=== PATIENT | male | born 1960 | race American Indian/Alaskan Native ===

== ENCOUNTER 2016-10-21 13:31 | Emergency (ER) | payer MEDICARE ==
[2016-10-21 14:44] VITALS: BP 156/71
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
--- NOTE | 2016-10-22 09:57 | XRay Report ---
LEFT TIBIA AND FIBULA, 2 VIEWS: HISTORY: Postoperative evaluation, pain. FINDINGS: Compared to the operative film dated 10/06/16. The internally fixated distal fibular fracture is unchanged in position and alignment. The internally fixated medial malleolus fracture has changed in position and alignment. There is now medial displacement of the medial malleolus. Please correlate with the images. Diffuse soft tissue swelling is noted. A splint is in position. IMPRESSION: There has been displacement at the medial malleolus fracture since the operative films dated 10/06/16. Please refer to the images. The fibular fracture is unchanged and remains in good alignment.
== END 2016-10-21 19:49 | disposition home or self-care (01) ==
LOC: ED 13:31
DX: S82.892A Other fracture of left lower leg, initial encounter for closed fracture (principal); F20.9 Schizophrenia, unspecified; I10 Essential (primary) hypertension; E11.9 Type 2 diabetes mellitus without complications; F03.90 Unspecified dementia, unspecified severity, without behavioral disturbance, psychotic disturbance, mood disturbance, and anxiety; F17.200 Nicotine dependence, unspecified, uncomplicated; X58.XXXA Exposure to other specified factors, initial encounter; Y93.9 Activity, unspecified; Y92.9 Unspecified place or not applicable; Y99.9 Unspecified external cause status
CPT/HCPCS: 99283

== ENCOUNTER 2016-10-23 13:20 | Outpatient (CLI) | payer MEDICARE | END 2016-10-23 13:21 | disposition home or self-care (01) | LOC: LABHHL 13:20 | PROVIDERS: ATTEND Orthopaedic Surgery | DX: S82.842S Displaced bimalleolar fracture of left lower leg, sequela (principal); X58.XXXS Exposure to other specified factors, sequela | CPT/HCPCS: 87075; 87116 ==

== ENCOUNTER 2017-02-10 07:37 | Day surgery (SDC) | payer MEDICARE ==
[~2017-02-10 07:37] MED LIST: ANCEF/STERILE WATER 2 GM/20 ML 2 GM/20 ML SYRINGE IV NR
[2017-02-10] MEDS ORDERED: DIPRIVAN 10 MG/ML IV ONE (08:50)
[2017-02-10] MEDS ORDERED: DILAUDID ONE (08:50)
--- NOTE | 2017-02-10 09:36 | Anesthesia Consultation ---
Anesthesia Consult and Med Hx Date of service: 02/10/17 - Airway Anesthetic Teeth Evaluation: Good ROM Head & Neck: Adequate Mental/Hyoid Distance: Adequate Mallampati Class: Class II Intubation Access Assessment: Probably Good - Pulmonary Exam CTA: Yes - Cardiac Exam Cardiac Exam: RRR - Pre-Operative Health Status ASA Pre-Surgery Classification: ASA3 Proposed Anesthetic Plan: General Nerve Block: Pop - Pulmonary Hx Smoking: Yes (1p/d x 9 years) Hx Asthma: No COPD: No Hx Pneumonia: No Hx Sleep Apnea: No - Cardiovascular System Hx Hypertension: Yes - Central Nervous System Hx Psychiatric Problems: Yes (schizophrenia. MENTALLY CHALLENGED) - Gastrointestinal Hx Gastroesophageal Reflux Disease: No - Endocrine Hx Insulin Dependent Diabetes: Yes Hx Non-Insulin Dependent Diabetes: Yes - Hematic Hx Anemia: Yes - Other Systems Hx Cancer: No
--- NOTE | 2017-02-10 09:36 | Anesthesia Day of Surgery ---
Anesthesia Day of Surgery - Day of Surgery Patient Examined: Yes Patient H&P Reviewed: Yes Patient is NPO: Yes
[2017-02-10] MEDS ORDERED: VERSED IV NR (10:00)
[2017-02-10] MEDS ORDERED: NACL 0.9% 1000 ML 1,000 ML IV SCH (10:00)
[2017-02-10] MEDS ORDERED: PEPCID PO NR (10:00)
[2017-02-10 10:19] LABS: Hematocrit 24.8 % (35.5-45.6); Hemoglobin 7.9 gm/dl (11.8-15.2)
[2017-02-10] MEDS ORDERED: DECADRON ONE (10:48)
[2017-02-10] MEDS ORDERED: MARCAINE-EPI 0.25%-1:200,000 INFILTRATI ONE (10:48)
--- NOTE | 2017-02-10 11:36 | Short Stay Summary ---
Short Stay Documentation Date of service: 02/10/17 - History H&P: obtained from office - Allergies and Medications Current Medications: Allergies aripiprazole [From Abilify] Allergy (Verified 10/03/16 00:01) Unknown divalproex sodium [From Depakote] Allergy (Verified 10/03/16 00:01) Unknown enalapril Allergy (Verified 10/03/16 00:01) Unknown fluoxetine HCl [From Prozac] Allergy (Verified 10/03/16 00:01) Unknown fluphenazine Allergy (Verified 10/03/16 00:01) Unknown lithium Allergy (Verified 10/03/16 00:01) Unknown loxapine Allergy (Verified 10/03/16 00:01) Unknown sertraline HCl [From Zoloft] Allergy (Verified 10/03/16 00:01) Unknown ziprasidone HCl [From Geodon] Allergy (Verified 10/03/16 00:01) Unknown ziprasidone mesylate [From Geodon] Allergy (Verified 10/03/16 00:01) Unknown Home Medications Medication Instructions Recorded Confirmed Last Taken Type Benztropine 2 mg PO BID 04/02/15 02/09/17 03/15/16 History LORazepam 0.5 mg PO QHS 04/02/15 02/09/17 03/15/16 History Aspirin [Aspirin TAB] 325 mg PO BID #60 tablet 10/15/16 02/09/17 Unknown Rx DULoxetine 60 mg PO DAILY #30 10/15/16 02/09/17 Unknown Rx Ferrous Sulfate [Feosol 325 MG tab] 325 mg PO BID #60 tablet 10/15/16 02/09/17 Unknown Rx Hydrochlorothiazide [HCTZ] 12.5 mg PO QDAY #30 capsule 10/15/16 02/09/17 Unknown Rx Pioglitazone [Actos] 30 mg PO QDDIAB #30 tablet 10/15/16 02/09/17 Unknown Rx amLODIPine [Norvasc] 10 mg PO DAILY #30 tablet 10/15/16 02/09/17 Unknown Rx glipiZIDE [Glucotrol] 10 mg PO QDDIAB #30 tablet 10/15/16 02/09/17 Unknown Rx Enoxaparin [Lovenox] 40 mg SUB-Q QDAY@2200 syringe 11/16/16 02/09/17 Unknown Rx HYDROcodone/APAP 5-325 [[place] 1 - 2 each PO Q6HR PRN #10 tablet 11/16/16 Unknown Rx 5/325] Multivitamin Tab [Multiple Vitamin 1 each PO QDAY tablet 11/16/16 02/09/17 Unknown Rx TAB (Theragran)] Ascorbic Acid [Vitamin C] 500 mg PO BID 02/09/17 02/09/17 Unknown History Clonidine HCl [Kapvay] 0.1 mg PO BID PRN 02/09/17 02/09/17 Unknown History Famotidine [Pepcid] 20 mg PO DAILY 02/09/17 02/09/17 Unknown History Insulin Aspart [NovoLOG Flexpen] 1 - 100 units SQ AC PRN 02/09/17 02/09/17 Unknown History Lactobacillus Combination No.8 1 each PO BID 02/09/17 02/09/17 Unknown History [Adult Probiotic] Sulfamethoxazole/Trimethoprim 1 each PO BID 02/09/17 02/09/17 Unknown History [Bactrim DS TAB] risperiDONE [RisperiDONE] 0.5 mg PO QDAY 02/09/17 02/09/17 Unknown History Active Medications Famotidine (Pepcid) 20 mg PO PREOP NR Cefazolin Sodium (Ancef/Sterile Water 2 Gm/20 Ml) 2 gm in 20 mls @ 80 mls/hr IV PREOP NR PRN Reason: Protocol Stop: 02/10/17 16:00 Sodium Chloride (Nacl 0.9% 1000 Ml) 1,000 mls @ 100 mls/hr IV DIRECT JOSE Midazolam HCl (Versed) 2 mg IV PREOP NR Stop: 02/10/17 23:59 - Brief post op/procedure progress note Date of procedure: 02/10/17 Pre-op diagnosis: S/P ankle arthrodesis Post-op diagnosis: same Procedure: Removal of external fixator Anesthesia: GETA Short Stay Discharge Plan Follow up with: PRIMARY CARE, [Primary Care Provider] - 7 Days
[2017-02-10] MEDS ORDERED: NACL 0.9% IR ONE (11:38)
[2017-02-10] MEDS ORDERED: ZOFRAN ONE (11:58)
[2017-02-10] MEDS ORDERED: XYLOCAINE MPF 2% ONE (11:58)
--- NOTE | 2017-02-10 12:27 | Post Anesthesia Evaluation ---
- Post Anesthesia Evaluation Patient Participated: Yes Airway Patent: Yes Stable Respiratory Function: Yes Nausea/Vomiting: No Temp > 96.8F: Yes Pain Manageable: Yes Adequeate Hydration: Yes Anesthesia Complications: No Block Receding Appropriately: Not Applicable Patient on Ventilator: No
[2017-02-10 19:51] VITALS: BP 147/81
--- NOTE | 2017-02-10 23:46 | Operative Report ---
PREOPERATIVE DIAGNOSES: Status post open infected ankle, status post ankle arthrodesis open with external fixator. PROCEDURE: Removal of external fixation. SURGEON: Graciela Flores MD HAMPER MAKER MACHINE: Alex Noble RN ANESTHESIA: General. COMPLICATION: None. PROCEDURE IN DETAIL: Once the patient was in the surgical room, a complete construct of system was prepped and draped with alcohol solution. Once it was done, all the connecting clamps were loosened up and removed leaving the fixation pins. Once this was done, the pins on the tibia #4 were removed one by one using the pin alvarado. Once it was done, the attention was carried out to the calcaneus, transfixing pins from the calcaneus were cut with a big bone cutter, the remaining of the pins were cleaned out and the pins were pulled away from the ankle. Once this was done, all the puncture holes were cleaned and a compression bandage applied. Once it was done, the patient was awakened and the patient was taken to the recovery room doing well at the end of the procedure. JOB# [id number] BAUTISTA/RICHARD BLACK
== END 2017-02-10 16:03 | disposition other institution (70) ==
LOC: OR 07:37
DX: Z46.89 Encounter for fitting and adjustment of other specified devices (principal); I10 Essential (primary) hypertension; F20.9 Schizophrenia, unspecified; E11.9 Type 2 diabetes mellitus without complications; D64.9 Anemia, unspecified; F17.210 Nicotine dependence, cigarettes, uncomplicated; Z79.899 Other long term (current) drug therapy
CPT/HCPCS: 20694; 36415; 64450; 82962; 84132; 85014; 85018; J0690; J1100; J1170; J2250; J2405; J2704; J7030

== ENCOUNTER 2017-08-02 17:01 | Emergency (ER) | payer MEDICARE, OTHER ==
[2017-08-02 21:37] VITALS: BP 142/87
[2017-08-02 22:34] LABS: Basophils % (Auto) 0.9 % (0.0-1.8); Hemoglobin 10.5 gm/dl (11.8-15.2); White Blood Count 5.1 K/mm3 (4.5-11.0)
[2017-08-02 22:38] LABS: Hematocrit 33.4 % (35.5-45.6); Mean Corpuscular HGB Conc 32 % (32-34); Mean Corpuscular Hemoglobin 28 pg (28-32); Mean Corpuscular Volume 89 fl (84-94); Platelet Count 340 K/mm3 (140-440); Red Blood Count 3.75 M/mm3 (3.65-5.03)
[2017-08-02 23:08] LABS: Alanine Aminotransferase 11 units/L (7-56); Albumin 4.2 g/dL (3.9-5); Alkaline Phosphatase 152 units/L (35-129); Anion Gap 19 mmol/L; BUN/Creatinine Ratio 14; Blood Urea Nitrogen 20 mg/dL (9-20); Calcium 9.4 mg/dL (8.4-10.2); Carbon Dioxide 25 mmol/L (22-30); Chloride 98.8 mmol/L (98-107); Glucose 87 mg/dL (75-100); Potassium 4.5 mmol/L (3.6-5.0); Sodium 138 mmol/L (137-145); Total Protein 8.6 g/dL (6.3-8.2)
--- NOTE | 2017-08-02 23:21 | Cat Scan Report ---
FINAL REPORT PROCEDURE: CT LOWER EXTREMITY LT WO CON TECHNIQUE: Computerized axial tomography of the LEFT ankle was performed without contrast. HISTORY: sx hardware exposed/wound/deformity lt ankle COMPARISON: No prior studies are available for comparison. FINDINGS: There is hardware transfixing old healed fracture of the distal fibula. The hardware is intact. The lowest screw in the plate appears to be partially exposed. Overlying soft tissues, however, are within normal limits. No discrete abscess is seen. 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 There is fragmentation of the medial malleolus with lateral displacement of the talus relative to the tibia. There are destructive changes of the distal tibia and the articular surface of the talus. There is significant bony overgrowth and periosteal reaction of the tibia and fibula. These could be degenerative changes but possibility of osteomyelitis cannot be excluded. The calcaneus is intact. The tarsal bones and metatarsal bones and phalanges are intact. There is the medial subcutaneous edema at the ankle and generalized soft tissue edema of the hindfoot. There is no subcutaneous air or soft tissue mass. IMPRESSION: There is hardware transfixing old healed fracture of the distal fibula. The hardware is intact. The lowest screw in the plate appears to be partially exposed. 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 There is fragmentation of the medial malleolus with lateral displacement of the talus relative to the tibia. There are destructive changes of the distal tibia and the articular surface of the talus. There is significant bony overgrowth and periosteal reaction of the tibia and fibula. These could be degenerative changes but possibility of osteomyelitis cannot be excluded.
[2017-08-03 00:02] LABS: Bilirubin,Urine NEG (Negative); Blood,Urine SM (Negative); Ketones,Urine NEG (Negative); Leukocyte Esterase,Urine NEG (Negative); Mucus,Urine FEW /HPF; Nitrite,Urine NEG (Negative); Protein,Urine <15 mg/dL mg/dL (Negative); Urobilinogen,Urine < 2.0 mg/dL (<2.0); WBC,Urine < 1.0 /HPF (0.0-6.0)
--- NOTE | 2017-08-03 00:41 | Emergency Department Report ---
ED Extremity Problem HPI - General Chief complaint: Extremity Injury, Lower Stated complaint: LEFT ANKLE WOUND CK Time Seen by Provider: 08/02/17 21:56 Source: patient, EMS Mode of arrival: Stretcher Limitations: No Limitations - History of Present Illness Initial comments: A 58-year-old male brought to ER with complaints of transfixing pin, protruding through his skin on his left lateral malleolus. This came to his attention today. 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 He is status post open reduction internal fixation of bimalleolar fracture left ankle.. Patient denies fevers chills or rigors, no nausea vomiting no diarrhea, he doesn't recall any trauma prior to transfixing pin protruding through his left lateral malleolus. MD Complaint: other (transfixating pin, protruding through left ankle lateral malleolus) -: Gradual Location: left (left ankle, lateral malleolus) History of Same: No Severity scale (0 -10): 0 Improves with: nothing Worsens with: nothing Associated Symptoms: denies other symptoms. denies: chest pain, shortness of breath, fever, myalgias, arthralgias, rash - Related Data Home Medications Medication Instructions Recorded Confirmed Last Taken Benztropine 2 mg PO BID 04/02/15 08/02/17 02/09/17 LORazepam 1 mg PO BID 04/02/15 08/02/17 02/09/17 risperiDONE [RisperiDONE] 1 mg PO HS 02/09/17 08/02/17 02/09/17 amLODIPine [Norvasc] 10 mg PO DAILY 02/10/17 08/02/17 02/09/17 Pioglitazone [Actos] 15 mg PO QDDIAB 08/02/17 08/02/17 Unknown Previous Rx's Medication Instructions Recorded Last Taken Type DULoxetine 60 mg PO DAILY #30 10/15/16 02/09/17 Rx Ferrous Sulfate [Feosol 325 MG tab] 325 mg PO BID #60 tablet 10/15/16 02/09/17 Rx Hydrochlorothiazide [HCTZ] 12.5 mg PO QDAY #30 capsule 10/15/16 02/09/17 Rx glipiZIDE [Glucotrol] 10 mg PO QDDIAB #30 tablet 01/19/17 05/16/17 Rx Multivitamin Tab [Multiple Vitamin 1 each PO QDAY tablet 11/16/16 02/09/17 Rx TAB (Theragran)] Allergies Allergy/AdvReac Type Severity Reaction Status Date / Time aripiprazole [From Abilify] Allergy Unknown Verified 10/03/16 00:01 divalproex sodium Allergy Unknown Verified 10/03/16 00:01 [From Depakote] enalapril Allergy Unknown Verified 10/03/16 00:01 fluoxetine HCl [From Prozac] Allergy Unknown Verified 10/03/16 00:01 fluphenazine Allergy Unknown Verified 10/03/16 00:01 lithium Allergy Unknown Verified 10/03/16 00:01 loxapine Allergy Unknown Verified 10/03/16 00:01 sertraline HCl [From Zoloft] Allergy Unknown Verified 10/03/16 00:01 ziprasidone HCl [From Geodon] Allergy Unknown Verified 10/03/16 00:01 ziprasidone mesylate Allergy Unknown Verified 10/03/16 00:01 [From Geodon] ED Review of Systems ROS: Stated complaint: LEFT ANKLE WOUND CK Other details as noted in HPI Comment: All other systems reviewed and negative Constitutional: denies: chills, diaphoresis, fever, malaise Eyes: denies: eye pain, eye discharge, vision change ENT: denies: throat pain, dental pain, hearing loss, epistaxis Respiratory: denies: cough, orthopnea, shortness of breath, SOB with exertion Cardiovascular: denies: chest pain, palpitations, dyspnea on exertion, orthopnea , edema, syncope Endocrine: see HPI Gastrointestinal: denies: nausea, vomiting, diarrhea Musculoskeletal: as per HPI, joint swelling Skin: as per HPI ED Past Medical Hx - Past Medical History Previous Medical History?: Yes Hx Hypertension: Yes Hx Congestive Heart Failure: No Hx Diabetes: Yes Hx Psychiatric Treatment: Yes Hx Asthma: No Hx COPD: No Hx Dementia: Yes Hx HIV: No - Surgical History Past Surgical History?: Yes Additional Surgical History: ORIF left ankle bimalleolar fracture - Social History Smoking Status: Unknown if ever smoked Substance Use Type: None - Medications Home Medications: Home Medications Medication Instructions Recorded Confirmed Last Taken Type Benztropine 2 mg PO BID 04/02/15 08/02/17 02/09/17 History LORazepam 1 mg PO BID 04/02/15 08/02/17 02/09/17 History DULoxetine 60 mg PO DAILY #30 10/15/16 08/02/17 02/09/17 Rx Ferrous Sulfate [Feosol 325 MG tab] 325 mg PO BID #60 tablet 10/15/16 08/02/17 02/09/17 Rx Hydrochlorothiazide [HCTZ] 12.5 mg PO QDAY #30 capsule 10/15/16 08/02/17 Rx glipiZIDE [Glucotrol] 10 mg PO QDDIAB #30 tablet 10/15/16 08/02/17 02/09/17 Rx Multivitamin Tab [Multiple Vitamin 1 each PO QDAY tablet 11/16/16 08/02/17 Rx TAB (Theragran)] risperiDONE [RisperiDONE] 1 mg PO HS 02/09/17 08/02/17 02/09/17 History amLODIPine [Norvasc] 10 mg PO DAILY 02/10/17 08/02/17 02/09/17 History Pioglitazone [Actos] 15 mg PO QDDIAB 08/02/17 08/02/17 Unknown History ED Physical Exam - General Limitations: No Limitations General appearance: alert, in no apparent distress - Head Head exam: Present: atraumatic, normocephalic - Eye Eye exam: Present: normal appearance, PERRL, EOMI - ENT ENT exam: Present: normal exam, normal orophraynx, mucous membranes moist - Neck Neck exam: Present: normal inspection, tenderness, full ROM. Absent: meningismus, lymphadenopathy, thyromegaly - Respiratory Respiratory exam: Present: normal lung sounds bilaterally. Absent: respiratory distress, wheezes, rales, rhonchi, chest wall tenderness, accessory muscle use, decreased breath sounds, prolonged expiratory - Cardiovascular Cardiovascular Exam: Present: regular rate, normal rhythm, normal heart sounds. Absent: bradycardia, tachycardia, systolic murmur, diastolic murmur - GI/Abdominal GI/Abdominal exam: Present: soft, normal bowel sounds. Absent: distended, tenderness, guarding, rebound, rigid, hyperactive bowel sounds, hypoactive bowel sounds, organomegaly, mass - Rectal Rectal exam: Present: deferred ED Course Vital Signs 08/02/17 08/02/17 08/02/17 17:39 21:12 21:15 Temperature 97.8 F Pulse Rate 80 73 Respiratory 18 15 15 Rate Blood Pressure 147/80 Blood Pressure 139/85 [Right] O2 Sat by Pulse 99 100 100 Oximetry 08/02/17 21:37 Temperature Pulse Rate 74 Respiratory 16 Rate Blood Pressure Blood Pressure 142/87 [Right] O2 Sat by Pulse 96 Oximetry - Consultations Consultation #1: 08/03/17 00:[address] Brianna cruz couple, Trileptal to be bandage over his left ankleand have him follow up with him in clinic. ED Medical Decision Making - Lab Data Result diagrams: 08/02/17 21:53 08/02/17 21:53 Critical Care Time: No Critical care attestation.: If time is entered above; I have spent that time in minutes in the direct care of this critically ill patient, excluding procedure time. ED Disposition Clinical Impression: Encounter for wound care of surgical pin site Disposition: DC-01 TO HOME OR SELFCARE Is pt being admited?: No Does the pt Need Aspirin: No Condition: Stable Instructions: Acute Wound Care (ED) Additional Instructions: Follow up with Dr. Wallace in clinic within next 1-2 days. Keep wound clean and dry Referrals: ABBIE GLEZ MD [Primary Care Provider] - 3-5 Days ROBERT WALLACE MD [Staff Physician] - 2-3 Days (Follow-up in outpatient clinic. Call office for an appointment.) Time of Disposition: 00:46
== END 2017-08-03 01:16 | disposition home or self-care (01) ==
LOC: ED 17:01
DX: M25.572 Pain in left ankle and joints of left foot (principal); G89.18 Other acute postprocedural pain; I10 Essential (primary) hypertension; E11.9 Type 2 diabetes mellitus without complications; F03.90 Unspecified dementia, unspecified severity, without behavioral disturbance, psychotic disturbance, mood disturbance, and anxiety
CPT/HCPCS: 36415; 80053; 81001; 82140; 85025; 87040; 87076; 87116; 87186

== ENCOUNTER 2017-08-17 12:47 | Day surgery (SDC) | payer MEDICARE ==
--- NOTE | 2017-08-17 14:18 | Short Stay Summary ---
Short Stay Documentation Date of service: 08/17/17 - History H&P: obtained from office - Allergies and Medications Current Medications: Allergies aripiprazole [From Abilify] Allergy (Verified 10/03/16 00:01) Unknown divalproex sodium [From Depakote] Allergy (Verified 10/03/16 00:01) Unknown enalapril Allergy (Verified 10/03/16 00:01) Unknown fluoxetine HCl [From Prozac] Allergy (Verified 10/03/16 00:01) Unknown fluphenazine Allergy (Verified 10/03/16 00:01) Unknown lithium Allergy (Verified 10/03/16 00:01) Unknown loxapine Allergy (Verified 10/03/16 00:01) Unknown sertraline HCl [From Zoloft] Allergy (Verified 10/03/16 00:01) Unknown ziprasidone HCl [From Geodon] Allergy (Verified 10/03/16 00:01) Unknown ziprasidone mesylate [From Geodon] Allergy (Verified 10/03/16 00:01) Unknown Home Medications Medication Instructions Recorded Confirmed Last Taken Type Benztropine 2 mg PO DAILY 04/02/15 08/13/17 02/09/17 History LORazepam 1 mg PO BID 04/02/15 08/13/17 02/09/17 History DULoxetine 60 mg PO DAILY #30 10/15/16 08/13/17 02/09/17 Rx Ferrous Sulfate [Feosol 325 MG tab] 325 mg PO BID #60 tablet 10/15/16 08/13/17 02/09/17 Rx Hydrochlorothiazide [HCTZ] 12.5 mg PO QDAY #30 capsule 10/15/16 08/13/17 Rx risperiDONE [RisperiDONE] 1 mg PO HS 02/09/17 08/13/17 02/09/17 History amLODIPine [Norvasc] 10 mg PO DAILY 02/10/17 08/13/17 02/09/17 History Pioglitazone [Actos] 15 mg PO DAILY 08/02/17 08/13/17 Unknown History Acetaminophen [Tylenol Extra 650 mg PO PRN PRN 08/13/17 08/13/17 Unknown History Strength] Ammonium Lactate [Lac-Hydrin 1 applicatio TP BID 08/13/17 08/13/17 Unknown History Lotion] Aspirin [Aspirin EC] 325 mg PO DAILY 08/13/17 08/13/17 Unknown History Haloperidol [Haldol] 10 mg PO BID 08/13/17 08/13/17 Unknown History Ibuprofen [Motrin] 800 mg PO Q8HR PRN 08/13/17 08/13/17 Unknown History glipiZIDE [Glucotrol] 10 mg PO BID 08/13/17 08/13/17 Unknown History Active Medications Cefazolin Sodium (Ancef/Sterile Water 2 Gm/20 Ml) 2 gm in 20 mls @ 80 mls/hr IV PREOP NR PRN Reason: Protocol Stop: 08/17/17 23:00 - Brief post op/procedure progress note Date of procedure: 08/17/17 Pre-op diagnosis: Retained plate and screws fibula Left Post-op diagnosis: same Procedure: Removal of plate and screws left ankle Anesthesia: GETA Surgeon: ROBERT WALLACE Estimated blood loss: none Pathology: none Short Stay Discharge Plan Follow up with: ABBIE GLEZ MD [Primary Care Provider] - 7 Days
--- NOTE | 2017-08-17 14:20 | Anesthesia Day of Surgery ---
Anesthesia Day of Surgery - Day of Surgery Patient Examined: Yes Patient H&P Reviewed: Yes Patient is NPO: Yes
--- NOTE | 2017-08-17 14:20 | Anesthesia Consultation ---
Anesthesia Consult and Med Hx Date of service: 08/17/17 - Airway Anesthetic Teeth Evaluation: Poor ROM Head & Neck: Adequate Mental/Hyoid Distance: Adequate Mallampati Class: Class II Intubation Access Assessment: Probably Good - Pulmonary Exam CTA: Yes - Cardiac Exam Cardiac Exam: RRR - Pre-Operative Health Status ASA Pre-Surgery Classification: ASA3 Proposed Anesthetic Plan: General - Pulmonary Hx Smoking: Yes (1 PPD x 9 years) Hx Asthma: No COPD: No Hx Pneumonia: Yes (10/2016- RESOLVED) Hx Sleep Apnea: No (YOLANDA PRE SCREEN HIGH RISK) - Cardiovascular System Hx Hypertension: Yes - Central Nervous System Hx Psychiatric Problems: Yes (schizophrenia. MENTALLY CHALLENGED) - Gastrointestinal Hx Gastroesophageal Reflux Disease: No - Endocrine Hx Insulin Dependent Diabetes: Yes Hx Non-Insulin Dependent Diabetes: Yes - Hematic Hx Anemia: Yes - Other Systems Hx Cancer: No
[2017-08-17] MEDS ORDERED: DILAUDID IV PRN (14:21)
[2017-08-17] MEDS ORDERED: ZOFRAN IV PRN (14:21)
[2017-08-17] MEDS ORDERED: PERCOCET 5/325 PO PRN (14:21)
[2017-08-17] MEDS ORDERED: DIPRIVAN 10 MG/ML IV ONE (14:55)
[2017-08-17] MEDS ORDERED: DILAUDID ONE (14:56)
[2017-08-17] MEDS ORDERED: NACL 0.9% IR ONE (14:58)
[2017-08-17] MEDS ORDERED: NACL 0.9% 1000 ML 1,000 ML IV SCH (15:00)
[2017-08-17] MEDS ORDERED: PEPCID IV NR (15:00)
[2017-08-17] MEDS ORDERED: XYLOCAINE MPF 2% ONE (15:20)
--- NOTE | 2017-08-17 17:03 | Post Anesthesia Evaluation ---
- Post Anesthesia Evaluation Patient Participated: Yes Airway Patent: Yes Stable Respiratory Function: Yes Nausea/Vomiting: No Temp > 96.8F: Yes Pain Manageable: Yes Adequeate Hydration: Yes Anesthesia Complications: No
[2017-08-17 21:07] VITALS: BP 140/68
--- NOTE | 2017-08-26 16:27 | Operative Report ---
PREOPERATIVE DIAGNOSES: Status post arthrodesis of the left ankle, ____ metal plate and screws on the fibula. PROCEDURE: Exploration of left fibula, removal of plate and fixed screws. Debridement of the wound. Cultures. SURGEON: Graciela Flores MD. ANESTHESIA: General. COMPLICATIONS: None. DESCRIPTION OF PROCEDURE: Once the patient was in surgical room, ____ ankle. Prepping and draping was done in usual fashion. Procedure was carried out by making an incision in a straight midline over the ____ lateral side of the ankle, dissection was carried down to the subcutaneous tissues ____. The plate was exposed without any problems, the patient had some bone formation over the upper portion of the ____ following that, the patient had removal of the screws one by one following deeper removal of the plate. Curettage and cleaning and debridement of the area was done. Distal holes of the tibia were curetted out and cultured. Once this was done, the procedure was terminated. Wound was irrigated and closed with 2-0 nylon multiple interrupted suture ____ bottom of the wound partially opened. A compression bandage applied. The patient tolerated the procedure well. There were no complications. JOB# [id number] BAUTISTA/RICHARD
== END 2017-08-17 18:00 | disposition home or self-care (01) ==
LOC: OR 12:47
DX: T84.84XA Pain due to internal orthopedic prosthetic devices, implants and grafts, initial encounter (principal); I10 Essential (primary) hypertension; E11.9 Type 2 diabetes mellitus without complications; F17.210 Nicotine dependence, cigarettes, uncomplicated; F20.9 Schizophrenia, unspecified; F78 Other intellectual disabilities; Z79.82 Long term (current) use of aspirin; Z98.1 Arthrodesis status; Z98.890 Other specified postprocedural states; Z79.84 Long term (current) use of oral hypoglycemic drugs; Y83.1 Surgical operation with implant of artificial internal device as the cause of abnormal reaction of the patient, or of later complication, without mention of misadventure at the time of the procedure
CPT/HCPCS: 20680; 82962; J0690; J1170; J2704; J7030

== ENCOUNTER 2018-01-27 10:10 | Outpatient (CLI) | payer MEDICARE ==
[2018-01-27] MEDS ORDERED: XYLOCAINE TOPICAL 4% TP ONE (10:38)
== END 2018-01-27 10:11 | disposition home or self-care (01) ==
LOC: WOUND 10:10
PROVIDERS: ATTEND Nurse Practitioner
DX: T81.31XA Disruption of external operation (surgical) wound, not elsewhere classified, initial encounter (principal); E11.622 Type 2 diabetes mellitus with other skin ulcer; L97.321 Non-pressure chronic ulcer of left ankle limited to breakdown of skin; F20.81 Schizophreniform disorder; I10 Essential (primary) hypertension; F17.210 Nicotine dependence, cigarettes, uncomplicated; Z89.012 Acquired absence of left thumb; Y83.8 Other surgical procedures as the cause of abnormal reaction of the patient, or of later complication, without mention of misadventure at the time of the procedure; Y92.89 Other specified places as the place of occurrence of the external cause
CPT/HCPCS: 11042; 87075; 87116; G0463; 87076; 87186

== ENCOUNTER 2018-02-03 09:55 | Outpatient (CLI) | payer MEDICARE ==
[2018-02-03] MEDS ORDERED: XYLOCAINE TOPICAL 4% TP ONE ×2 (09:58→10:26)
[2018-02-04] MEDS ORDERED: AD OINTMENT TP SCH (10:00)
== END 2018-02-03 09:56 | disposition home or self-care (01) ==
LOC: WOUND 09:55
PROVIDERS: ATTEND Surgery
DX: T81.31XD Disruption of external operation (surgical) wound, not elsewhere classified, subsequent encounter (principal); E11.622 Type 2 diabetes mellitus with other skin ulcer; L97.321 Non-pressure chronic ulcer of left ankle limited to breakdown of skin; I10 Essential (primary) hypertension; F17.210 Nicotine dependence, cigarettes, uncomplicated; F20.81 Schizophreniform disorder; Z89.012 Acquired absence of left thumb; Y83.8 Other surgical procedures as the cause of abnormal reaction of the patient, or of later complication, without mention of misadventure at the time of the procedure

== ENCOUNTER 2018-04-19 09:13 | Outpatient (CLI) | payer MEDICARE ==
[2018-04-19] MEDS ORDERED: XYLOCAINE TOPICAL 4% TP ONE ×2 (10:10→13:59)
== END 2018-04-19 09:14 | disposition home or self-care (01) ==
LOC: WOUND 09:13
PROVIDERS: ATTEND Surgery
DX: T81.89XD Other complications of procedures, not elsewhere classified, subsequent encounter (principal); E11.622 Type 2 diabetes mellitus with other skin ulcer; L97.321 Non-pressure chronic ulcer of left ankle limited to breakdown of skin; I10 Essential (primary) hypertension; F17.210 Nicotine dependence, cigarettes, uncomplicated; F20.81 Schizophreniform disorder; Z89.012 Acquired absence of left thumb; Y83.8 Other surgical procedures as the cause of abnormal reaction of the patient, or of later complication, without mention of misadventure at the time of the procedure
CPT/HCPCS: 11042; G0463

== ENCOUNTER 2018-04-26 08:52 | Outpatient (CLI) | payer MEDICARE ==
[2018-04-26] MEDS ORDERED: XYLOCAINE TOPICAL 2% 5ML ONE (09:00)
[2018-04-26] MEDS ORDERED: XYLOCAINE TOPICAL 2% 5ML TP ONE (09:07)
== END 2018-04-26 08:53 | disposition home or self-care (01) ==
LOC: WOUND 08:52
PROVIDERS: ATTEND Surgery
DX: E11.622 Type 2 diabetes mellitus with other skin ulcer (principal); L97.321 Non-pressure chronic ulcer of left ankle limited to breakdown of skin; I10 Essential (primary) hypertension; F17.210 Nicotine dependence, cigarettes, uncomplicated; F20.81 Schizophreniform disorder; Z89.012 Acquired absence of left thumb; Y83.8 Other surgical procedures as the cause of abnormal reaction of the patient, or of later complication, without mention of misadventure at the time of the procedure

== ENCOUNTER 2018-05-03 09:02 | Outpatient (CLI) | payer MEDICARE ==
[2018-05-03] MEDS ORDERED: XYLOCAINE TOPICAL 4% TP ONE ×2 (09:13→13:54)
== END 2018-05-03 09:03 | disposition home or self-care (01) ==
LOC: WOUND 09:02
PROVIDERS: ATTEND Surgery
DX: E11.622 Type 2 diabetes mellitus with other skin ulcer (principal); L97.321 Non-pressure chronic ulcer of left ankle limited to breakdown of skin; I10 Essential (primary) hypertension; F17.210 Nicotine dependence, cigarettes, uncomplicated; F20.81 Schizophreniform disorder; Z89.012 Acquired absence of left thumb
CPT/HCPCS: 87075; 87076; 87116; 87186

== ENCOUNTER 2018-05-17 10:10 | Outpatient (CLI) | payer MEDICARE ==
[2018-05-17] MEDS ORDERED: XYLOCAINE TOPICAL 4% TP ONE ×2 (10:15→10:31)
== END 2018-05-17 10:11 | disposition home or self-care (01) ==
LOC: WOUND 10:10
PROVIDERS: ATTEND Surgery
DX: E11.622 Type 2 diabetes mellitus with other skin ulcer (principal); L97.321 Non-pressure chronic ulcer of left ankle limited to breakdown of skin; I10 Essential (primary) hypertension; F17.210 Nicotine dependence, cigarettes, uncomplicated; F20.81 Schizophreniform disorder; Z89.012 Acquired absence of left thumb

== ENCOUNTER 2018-06-30 12:50 | Emergency (ER) | payer MEDICARE ==
[2018-06-30] MEDS ORDERED: HALDOL ONE (13:44)
--- NOTE | 2018-06-30 13:53 | Emergency Department Report ---
HPI - General Chief Complaint: Psych Time Seen by Provider: 06/30/18 13:47 - HPI HPI: 57-year-old male presents to the emergency department through triage, brought in by his nephew, from [facility] with complaint of psychosis. Apparently the patient has been threatening other residents and staff who began to feel as if they were not safe there. The nephew says that this is been going on and getting progressively worse over the past week. The patient does have a history of schizophrenia for which he was on Risperdal and the dosage was increased about one week ago. The patient also has a past medical history of some dementia, diabetes, hypertension. The patient himself is a poor historian secondary to his current condition. He is hyperverbal, tangential and disorganized. ED Past Medical Hx - Past Medical History Hx Hypertension: Yes Hx Congestive Heart Failure: No Hx Diabetes: Yes Hx Deep Vein Thrombosis: No Hx Psychiatric Treatment: Yes (SCHIZOPHERNIC) Hx Asthma: No Hx COPD: No Hx Dementia: Yes Hx HIV: No - Surgical History Hx Pacemaker: No Hx Internal Defibrillator: No Additional Surgical History: ORIF left ankle bimalleolar fracture - Social History Smoking Status: Current Every Day Smoker Substance Use Type: None - Medications Home Medications: Home Medications Medication Instructions Recorded Confirmed Last Taken Type DULoxetine 60 mg PO DAILY #30 10/15/16 02/10/18 02/09/18 09:00 Rx 60 mg hydroCHLOROthiazide [HCTZ] 12.5 mg PO QDAY #30 capsule 10/15/16 02/09/18 Rx risperiDONE [RisperiDONE] 1 mg PO HS 02/09/17 02/09/18 08/17/17 History amLODIPine [Norvasc] 10 mg PO DAILY 02/10/17 02/09/18 08/17/17 History Pioglitazone [Actos] 15 mg PO DAILY 08/02/17 02/09/18 08/17/17 History Acetaminophen [Tylenol Extra 650 mg PO PRN PRN 08/13/17 02/09/18 Unknown History Strength] glipiZIDE [Glucotrol] 10 mg PO BID 08/13/17 02/09/18 08/17/17 History ALBUTEROL NEB's [Proventil 0.083% 2.5 mg IH Q4HRT PRN nebu 02/25/18 Unknown Rx NEBS] Acetaminophen [Acetaminophen TAB] 650 mg PO Q4H PRN tablet 02/25/18 Unknown Rx Ammonium Lactate [Lac-Hydrin 1 applic TP BID bottle 02/25/18 Unknown Rx Lotion] Aspirin EC [Aspirin Enteric Coated 325 mg PO DAILY tablet 02/25/18 Unknown Rx TAB] DULoxetine [Cymbalta] 60 mg PO QDAY capsule 02/25/18 Unknown Rx Ferrous Sulfate [Feosol 325 MG tab] 325 mg PO BID tablet 02/25/18 Unknown Rx Haloperidol [Haldol] 10 mg PO BID tablet 02/25/18 Unknown Rx Insulin Regular, Human [HumuLIN R] 0 units SUB-Q ACHS units 02/25/18 Unknown Rx LORazepam [Ativan] 1 mg PO BID tablet 02/25/18 Unknown Rx amLODIPine [Norvasc] 10 mg PO DAILY tablet 02/25/18 Unknown Rx risperiDONE [RisperDAL] 1 mg PO HS tablet 02/25/18 Unknown Rx Vancomycin/Ns 1 gm/250 ml 1 gm IV Q12HR 30 Days vial.port 03/01/18 Unknown Rx cefTRIAXone/NS 2 GM/100 ML 2 gm IV Q24HR 30 Days piggyback 03/01/18 Unknown Rx [Rocephin/Ns 2 gm/100 ml] ED Review of Systems ROS: Stated complaint: MENTAL HEALTH EVAL Other details as noted in HPI Comment: Unobtainable due to pts medical conditions Physical Exam - Physical Exam Vital Signs: Vital Signs 06/30/18 13:08 Temperature 98 F Pulse Rate 91 H Respiratory 18 Rate Blood Pressure 127/70 O2 Sat by Pulse 98 Oximetry Physical Exam: GENERAL: The patient is well-developed well-nourished. HENT: Normocephalic. Atraumatic. Patient has moist mucous membranes. EYES: Extraocular motions are intact. NECK: Supple. Trachea is midline. CHEST/LUNGS: Clear to auscultation. There is no respiratory distress noted. HEART/CARDIOVASCULAR: Regular. There is no tachycardia. There is no murmur. ABDOMEN: Abdomen is soft, nontender. Patient has normal bowel sounds. There is no abdominal distention. SKIN: Skin is warm and dry. NEURO: The patient is awake but altered. No slurring of speech. Withdraws from painful stimuli. MUSCULOSKELETAL: There is no tenderness or deformity. There is no evidence of acute injury. PSYCH: Patient is hyperverbal. He is rambling with tangential thoughts and is disorganized. ED Course Vital Signs 06/30/18 13:08 Temperature 98 F Pulse Rate 91 H Respiratory 18 Rate Blood Pressure 127/70 O2 Sat by Pulse 98 Oximetry ED Medical Decision Making - Lab Data Result diagrams: 06/30/18 14:18 06/30/18 14:18 - Medical Decision Making This patient presents from his care home facility without appears to be worsening psychosis. The patient is hyperverbal, rambling with tangential thoughts and is disorganized. He is awake but appears altered secondary to the psychosis. He will not answer any questions and is not redirectable. He was briefly seen by another emergency provider who gave him a dose of Geodon. This helped but did not resolve his current symptoms. The patient appears to fit the criteria to be admitted 1013 for inpatient psychiatric treatment secondary to his acute psychosis. Labs have been mostly unremarkable. Vital signs stable throughout his ED course thus far. We are waiting for a urine sample to do a urinalysis and for urine drug screen. If the patient has a urinary tract infection, antibiotics will be started. Otherwise, the patient appears medically stable for psychiatric placement. - Differential Diagnosis schizophrenia, bipolar disorder, substance abuse, schizoaffective Critical Care Time: No Critical care attestation.: If time is entered above; I have spent that time in minutes in the direct care of this critically ill patient, excluding procedure time. ED Disposition Clinical Impression: Acute psychosis Disposition: [id number]/TX-65 PSY HOSP/PSY UNIT Is pt being admited?: No Condition: Stable Time of Disposition: 15:44
[2018-06-30 14:41] LABS: Basophils % (Auto) 0.7 % (0.0-1.8); Eosinophils # (Auto) 0.1 K/mm3 (0.0-0.4); Eosinophils % (Auto) 1.3 % (0.0-4.3); Hematocrit 30.1 % (35.5-45.6); Lymphocytes # (Auto) 1.1 K/mm3 (1.2-5.4); Lymphocytes % (Auto) 27.5 % (13.4-35.0); Mean Corpuscular HGB Conc 33 % (32-34); Mean Corpuscular Hemoglobin 30 pg (28-32); Mean Corpuscular Volume 92 fl (84-94); Monocytes # (Auto) 0.3 K/mm3 (0.0-0.8); Monocytes % (Auto) 8.1 % (0.0-7.3); Platelet Count 211 K/mm3 (140-440); Red Blood Count 3.29 M/mm3 (3.65-5.03); Red Cell Distribution Width 13.6 % (13.2-15.2)
[2018-06-30 14:55] LABS: BUN/Creatinine Ratio 15; Blood Urea Nitrogen 21 mg/dL (9-20); Hemolysis Index 0
--- NOTE | 2018-07-01 13:33 | Consultation ---
History of Present Illness - Reason for Consult Reason for consult: disorganized - History of Present Psychiatric Illness This is a 57-year-old middle-aged male with a past psychiatric history of schizophrenia now presenting secondary to increased physical agitation and disorganized behaviors within his residential. There is no significant exacerbating events reported in the medical record or by the patient. On clinical examination, patient was minimally cooperative and fairly disorganized. Patient continued to mumble incoherently and was unable to provide a clear coherent narrative of his hospital process. Per review the medical record, it was noted the patient was being agitated at his [facility] and was subsequently brought in for further evaluation and assessment. Each subsequent assessment, has documented the same with the patient is fairly upper verbal and disorganized. 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 Patient appears to have a supportive nephew. Patient is of [place] descent. On the process examination: Is a 57-year-old male appearing much older than stated age dressed in hospital gown not cooperative distracted with psychomotor retardation. Patient has visible amputation of left thumb as well as right small toe. His hygiene and grooming are poor. Eye contact was minimal patient was guarded. Sensorium distracted. Mood dysphoric affect congruent. Speech slow soft disorganized. Thought process tangential. Thought content preoccupied impoverished likely paranoid or spontaneous stimuli. Concentration/ Attention impaired. Insight and judgment poor. ADLs poor. Patient denying suicidal homicidal thoughts. Assessment: Schizophrenia Plan: Refer for inpatient psychiatric care Continue 1013 Start risperidone 1 mg every 12 hours Reassess daily to determine efficacy of psychotropic medications and to facilitate transition to inpatient level of care Medications and Allergies Allergies Allergy/AdvReac Type Severity Reaction Status Date / Time aripiprazole [From Abilify] Allergy Unknown Verified 06/30/18 13:08 divalproex sodium Allergy Unknown Verified 06/30/18 13:08 [From Depakote] enalapril Allergy Unknown Verified 06/30/18 13:08 fluoxetine HCl [From Prozac] Allergy Unknown Verified 06/30/18 13:08 fluphenazine Allergy Unknown Verified 06/30/18 13:08 lithium Allergy Unknown Verified 06/30/18 13:08 loxapine Allergy Unknown Verified 06/30/18 13:08 sertraline HCl [From Zoloft] Allergy Unknown Verified 06/30/18 13:08 ziprasidone HCl [From Geodon] Allergy Unknown Verified 06/30/18 13:08 ziprasidone mesylate Allergy Unknown Verified 02/09/18 16:31 [From Geodon] Home Medications Medication Instructions Recorded Confirmed Last Taken Type DULoxetine 60 mg PO DAILY #30 10/15/16 02/10/18 02/09/18 09:00 Rx 60 mg hydroCHLOROthiazide [HCTZ] 12.5 mg PO QDAY #30 capsule 10/15/16 02/09/18 Rx risperiDONE [RisperiDONE] 1 mg PO HS 02/09/17 02/09/18 08/17/17 History amLODIPine [Norvasc] 10 mg PO DAILY 02/10/17 02/09/18 08/17/17 History Pioglitazone [Actos] 15 mg PO DAILY 08/02/17 02/09/18 08/17/17 History Acetaminophen [Tylenol Extra 650 mg PO PRN PRN 08/13/17 02/09/18 Unknown History Strength] glipiZIDE [Glucotrol] 10 mg PO BID 08/13/17 02/09/18 08/17/17 History ALBUTEROL NEB's [Proventil 0.083% 2.5 mg IH Q4HRT PRN nebu 02/25/18 Unknown Rx NEBS] Acetaminophen [Acetaminophen TAB] 650 mg PO Q4H PRN tablet 02/25/18 Unknown Rx Ammonium Lactate [Lac-Hydrin 1 applic TP BID bottle 02/25/18 Unknown Rx Lotion] Aspirin EC [Aspirin Enteric Coated 325 mg PO DAILY tablet 02/25/18 Unknown Rx TAB] DULoxetine [Cymbalta] 60 mg PO QDAY capsule 02/25/18 Unknown Rx Ferrous Sulfate [Feosol 325 MG tab] 325 mg PO BID tablet 02/25/18 Unknown Rx Haloperidol [Haldol] 10 mg PO BID tablet 02/25/18 Unknown Rx Insulin Regular, Human [HumuLIN R] 0 units SUB-Q ACHS units 02/25/18 Unknown Rx LORazepam [Ativan] 1 mg PO BID tablet 02/25/18 Unknown Rx amLODIPine [Norvasc] 10 mg PO DAILY tablet 02/25/18 Unknown Rx risperiDONE [RisperDAL] 1 mg PO HS tablet 02/25/18 Unknown Rx Vancomycin/Ns 1 gm/250 ml 1 gm IV Q12HR 30 Days vial.port 03/01/18 Unknown Rx cefTRIAXone/NS 2 GM/100 ML 2 gm IV Q24HR 30 Days piggyback 03/01/18 Unknown Rx [Rocephin/Ns 2 gm/100 ml] Mental Status Exam - Vital signs Last Vital Signs Temp 98.6 F 06/30/18 21:14 Pulse 87 06/30/18 21:14 Resp 18 06/30/18 21:14 BP 156/76 06/30/18 21:14 Pulse Ox 100 06/30/18 21:14 Results Result Diagrams: 06/30/18 14:18 06/30/18 14:18 Abnormal lab results 06/30/18 06/30/18 06/30/18 Range/Units 14:18 14:18 14:18 WBC (4.5-11.0) K/mm3 RBC (3.65-5.03) M/mm3 Hgb (11.8-15.2) gm/dl Hct (35.5-45.6) % Bibb % (Auto) (0.0-7.3) % Lymph # (1.2-5.4) K/mm3 BUN 21 H (9-20) mg/dL Glucose 195 H (75-100) mg/dL POC Glucose (70-105) Salicylates < 0.3 L (2.8-20.0) mg/dL Acetaminophen < 5.0 L (10.0-30.0) ug/mL 06/30/18 06/30/18 07/01/18 Range/Units 14:18 22:16 08:55 WBC 4.0 L (4.5-11.0) K/mm3 RBC 3.29 L (3.65-5.03) M/mm3 Hgb 10.0 L (11.8-15.2) gm/dl Hct 30.1 L (35.5-45.6) % Bibb % (Auto) 8.1 H (0.0-7.3) % Lymph # 1.1 L (1.2-5.4) K/mm3 BUN (9-20) mg/dL Glucose (75-100) mg/dL POC Glucose 200 H 155 H (70-105) Salicylates (2.8-20.0) mg/dL Acetaminophen (10.0-30.0) ug/mL All other labs normal.
[2018-07-01] MEDS ORDERED: RisperDAL PO SCH (14:00)
[2018-07-01 19:16] VITALS: BP 135/76
== END 2018-07-01 21:24 ==
LOC: ED 12:50 → EEVIPCON 12:50 → ED 07-01 21:24
DX: F23 Brief psychotic disorder (principal); F20.9 Schizophrenia, unspecified; I10 Essential (primary) hypertension; E11.9 Type 2 diabetes mellitus without complications; F03.90 Unspecified dementia, unspecified severity, without behavioral disturbance, psychotic disturbance, mood disturbance, and anxiety; F17.200 Nicotine dependence, unspecified, uncomplicated; Z79.899 Other long term (current) drug therapy; Z88.1 Allergy status to other antibiotic agents; Z88.8 Allergy status to other drugs, medicaments and biological substances
CPT/HCPCS: 36415; 80048; 82962; 85025; 99285; G0480; J1630; 80320

== ENCOUNTER 2019-02-28 10:15 | Outpatient (CLI) | payer MEDICARE | END 2019-02-28 10:16 | disposition home or self-care (01) | LOC: WOUND 10:15 | PROVIDERS: ATTEND Surgery | DX: E11.622 Type 2 diabetes mellitus with other skin ulcer (principal); L97.322 Non-pressure chronic ulcer of left ankle with fat layer exposed; H53.8 Other visual disturbances; F20.9 Schizophrenia, unspecified; F17.290 Nicotine dependence, other tobacco product, uncomplicated | CPT/HCPCS: 11042; G0463; 99215 ==

== ENCOUNTER 2019-03-06 12:11 | Outpatient (CLI) | payer MEDICARE ==
--- NOTE | 2019-03-06 14:06 | Vascular Lab Report ---
PROCEDURE: VL ARTERIAL DUPLEX LE LT TECHNIQUE: Arterial duplex Doppler ultrasound left lower extremity. HISTORY: L97.222 NONPRESSURE CHRONIC ULCER OF LEG CALF/E11.628 TYPE 2 DIAB COMPARISON: None FINDINGS: On the left side there is blood flow throughout lower extremity arteries. There is some mild arterial plaque more notable distally. There is triphasic flow from distal external iliac artery to the poste rior tibial artery. There is biphasic flow in the anterior tibial artery and monophasic flow in the d orsalis pedis artery. Findings indicate some distal arterial disease. There is no abnormally elevated velocity to indicate focal arterial stenosis. IMPRESSION: Mild plaque present involving distal arteries. Patent left lower extremity arteries with flow in the dorsalis pedis which likely reflects some distal arterial disease. No evidence of focal stenosis. This document is electronically signed by Toshia Marquez MD., March 06 2019 02:03:38 PM ET
== END 2019-03-06 12:12 | disposition home or self-care (01) ==
LOC: VAS 12:11
PROVIDERS: ATTEND Surgery
DX: E11.628 Type 2 diabetes mellitus with other skin complications (principal); L97.222 Non-pressure chronic ulcer of left calf with fat layer exposed; I10 Essential (primary) hypertension; E11.9 Type 2 diabetes mellitus without complications

== ENCOUNTER 2019-03-07 12:51 | Outpatient (CLI) | payer MEDICARE ==
[2019-03-07] MEDS ORDERED: XYLOCAINE TOPICAL 4% TP ONE (13:30)
== END 2019-03-07 12:52 | disposition home or self-care (01) ==
LOC: WOUND 12:51
PROVIDERS: ATTEND Surgery
DX: T81.89XD Other complications of procedures, not elsewhere classified, subsequent encounter (principal); E11.622 Type 2 diabetes mellitus with other skin ulcer; L97.822 Non-pressure chronic ulcer of other part of left lower leg with fat layer exposed; I10 Essential (primary) hypertension; F20.9 Schizophrenia, unspecified; F17.290 Nicotine dependence, other tobacco product, uncomplicated; Y83.8 Other surgical procedures as the cause of abnormal reaction of the patient, or of later complication, without mention of misadventure at the time of the procedure

== ENCOUNTER 2019-03-14 12:56 | Outpatient (CLI) | payer MEDICARE | END 2019-03-14 12:57 | disposition home or self-care (01) | LOC: WOUND 12:56 | PROVIDERS: ATTEND Surgery | DX: T81.89XD Other complications of procedures, not elsewhere classified, subsequent encounter (principal); E11.622 Type 2 diabetes mellitus with other skin ulcer; L97.822 Non-pressure chronic ulcer of other part of left lower leg with fat layer exposed; I10 Essential (primary) hypertension; F20.9 Schizophrenia, unspecified; F17.290 Nicotine dependence, other tobacco product, uncomplicated; Y83.8 Other surgical procedures as the cause of abnormal reaction of the patient, or of later complication, without mention of misadventure at the time of the procedure ==

== ENCOUNTER 2019-03-20 13:00 | Outpatient (CLI) | payer MEDICARE ==
[2019-03-20] MEDS ORDERED: XYLOCAINE TOPICAL 4% TP ONE (13:55)
[2019-03-20] MEDS ORDERED: SILVER NITRATE TP ONE (13:55)
== END 2019-03-20 13:01 | disposition home or self-care (01) ==
LOC: WOUND 13:00
PROVIDERS: ATTEND Surgery
DX: T81.89XD Other complications of procedures, not elsewhere classified, subsequent encounter (principal); E11.622 Type 2 diabetes mellitus with other skin ulcer; L97.822 Non-pressure chronic ulcer of other part of left lower leg with fat layer exposed; I10 Essential (primary) hypertension; F20.9 Schizophrenia, unspecified; F17.290 Nicotine dependence, other tobacco product, uncomplicated; Y83.8 Other surgical procedures as the cause of abnormal reaction of the patient, or of later complication, without mention of misadventure at the time of the procedure

== ENCOUNTER 2019-03-27 12:42 | Outpatient (CLI) | payer MEDICARE ==
[2019-03-27] MEDS ORDERED: SILVER NITRATE TP ONE (13:12)
[2019-03-27] MEDS ORDERED: XYLOCAINE TOPICAL 4% TP ONE (13:12)
== END 2019-03-27 12:43 | disposition home or self-care (01) ==
LOC: WOUND 12:42
PROVIDERS: ATTEND Surgery
DX: T81.89XD Other complications of procedures, not elsewhere classified, subsequent encounter (principal); E11.622 Type 2 diabetes mellitus with other skin ulcer; L97.328 Non-pressure chronic ulcer of left ankle with other specified severity; I10 Essential (primary) hypertension; F20.9 Schizophrenia, unspecified; F17.290 Nicotine dependence, other tobacco product, uncomplicated; Y83.8 Other surgical procedures as the cause of abnormal reaction of the patient, or of later complication, without mention of misadventure at the time of the procedure
CPT/HCPCS: 99214; G0463

== ENCOUNTER 2019-05-29 17:34 | Inpatient (IN) | payer MEDICARE ==
--- NOTE | 2019-05-29 19:02 | Emergency Department Report ---
ED Psych HPI - General Chief Complaint: Psych Stated Complaint: HEARING VOICE/HYPERGLYCEMIA Time Seen by Provider: 05/29/19 18:35 Source: EMS Mode of arrival: Stretcher Limitations: No Limitations - History of Present Illness Initial Comments: Patient is a 58-year-old -[place] male who presented via EMS , resident of [facility], with hx of schizophrenia, HTN, DMII, Dementia and ORIF left ankle who presents for Hyperglycemia, nausea and vomiting, and altered mental status per Pediatric Neurologist Ramila Luque [phone] , pt has chronic problem dementia and of hearing voices, pt denies hearing voices today, there is no abdominal pain , no nausea and vomiting, pt is oriented to self easily reoriented to place and time, states that his sugar is up, pt states he ate dinner without complication, pt mentation is consistent with dementia, pt denies pain, denies SI or HI no symptoms of self harm, no obvious injury, post op boot in place to left foot. Will evaluate for Altered mental status and n/v and dispo appropriately. MD Complaint: altered mental status Onset/Timin -: days(s), unknown (this is a chronic condition ) Associated Psychiatric Symptoms: racing thoughts History of same: Yes Quality: constant Improves With: none Worsens With: none Associated Symptoms: confusion Treatments Prior to Arrival: none - Related Data Home Medications Medication Instructions Recorded Confirmed Last Taken risperiDONE [RisperiDONE] 1 mg PO HS 02/09/17 02/09/18 08/17/17 amLODIPine [Norvasc] 10 mg PO DAILY 02/10/17 02/09/18 08/17/17 Pioglitazone [Actos] 15 mg PO DAILY 08/02/17 02/09/18 08/17/17 Acetaminophen [Tylenol Extra 650 mg PO PRN PRN 08/13/17 02/09/18 Unknown Strength] glipiZIDE [Glucotrol] 10 mg PO BID 08/13/17 02/09/18 08/17/17 Previous Rx's Medication Instructions Recorded Last Taken Type DULoxetine 60 mg PO DAILY #30 10/15/16 02/09/18 09:00 Rx 60 mg hydroCHLOROthiazide [HCTZ] 12.5 mg PO QDAY #30 capsule 10/15/16 08/17/17 Rx ALBUTEROL NEB's [Proventil 0.083% 2.5 mg IH Q4HRT PRN nebu 02/25/18 Unknown Rx NEBS] Acetaminophen [Acetaminophen TAB] 650 mg PO Q4H PRN tablet 02/25/18 Unknown Rx Ammonium Lactate [Lac-Hydrin 1 applic TP BID bottle 02/25/18 Unknown Rx Lotion] Aspirin EC 325 mg PO DAILY tablet 02/25/18 Unknown Rx DULoxetine [Cymbalta] 60 mg PO QDAY capsule 02/25/18 Unknown Rx Ferrous Sulfate [Feosol 325 MG tab] 325 mg PO BID tablet 02/25/18 Unknown Rx Haloperidol [Haldol] 10 mg PO BID tablet 02/25/18 Unknown Rx Insulin Regular, Human [HumuLIN R] 0 units SUB-Q ACHS units 02/25/18 Unknown Rx LORazepam [Ativan] 1 mg PO BID tablet 02/25/18 Unknown Rx amLODIPine [Norvasc] 10 mg PO DAILY tablet 02/25/18 Unknown Rx risperiDONE [RisperDAL] 1 mg PO HS tablet 02/25/18 Unknown Rx Vancomycin/Ns 1 gm/250 ml 1 gm IV Q12HR 30 Days vial.port 03/01/18 Unknown Rx cefTRIAXone/NS 2 GM/100 ML 2 gm IV Q24HR 30 Days piggyback 03/01/18 Unknown Rx [Rocephin/Ns 2 gm/100 ml] Allergies Allergy/AdvReac Type Severity Reaction Status Date / Time aripiprazole [From Abilify] Allergy Unknown Verified 06/30/18 13:08 divalproex sodium Allergy Unknown Verified 06/30/18 13:08 [From Depakote] enalapril Allergy Unknown Verified 06/30/18 13:08 fluoxetine HCl [From Prozac] Allergy Unknown Verified 06/30/18 13:08 fluphenazine Allergy Unknown Verified 06/30/18 13:08 lithium Allergy Unknown Verified 06/30/18 13:08 loxapine Allergy Unknown Verified 06/30/18 13:08 sertraline HCl [From Zoloft] Allergy Unknown Verified 06/30/18 13:08 ziprasidone HCl [From Geodon] Allergy Unknown Verified 06/30/18 13:08 ziprasidone mesylate Allergy Unknown Verified 02/09/18 16:31 [From Geodon] ED Review of Systems ROS: Stated complaint: HEARING VOICE/HYPERGLYCEMIA Other details as noted in HPI Constitutional: denies: chills, fever Eyes: denies: eye pain, eye discharge, vision change ENT: as per HPI Respiratory: denies: cough, shortness of breath, wheezing Cardiovascular: denies: chest pain, palpitations Endocrine: no symptoms reported Gastrointestinal: abdominal pain, nausea, vomiting. denies: diarrhea Genitourinary: denies: urgency, dysuria Musculoskeletal: denies: back pain, joint swelling, arthralgia Skin: denies: rash, lesions Neurological: denies: headache, weakness, paresthesias Psychiatric: denies: anxiety, depression Hematological/Lymphatic: denies: easy bleeding, easy bruising ED Past Medical Hx - Past Medical History Hx Hypertension: Yes Hx Congestive Heart Failure: No Hx Diabetes: Yes Hx Deep Vein Thrombosis: No Hx Psychiatric Treatment: Yes (SCHIZOPHERNIC) Hx Asthma: No Hx COPD: No Hx Dementia: Yes Hx HIV: No - Surgical History Hx Pacemaker: No Hx Internal Defibrillator: No Additional Surgical History: ORIF left ankle bimalleolar fracture - Social History Smoking Status: Current Every Day Smoker Substance Use Type: None - Medications Home Medications: Home Medications Medication Instructions Recorded Confirmed Last Taken Type DULoxetine 60 mg PO DAILY #30 10/15/16 02/10/18 02/09/18 09:00 Rx 60 mg hydroCHLOROthiazide [HCTZ] 12.5 mg PO QDAY #30 capsule 10/15/16 02/09/18 Rx risperiDONE [RisperiDONE] 1 mg PO HS 02/09/17 02/09/18 08/17/17 History amLODIPine [Norvasc] 10 mg PO DAILY 02/10/17 02/09/18 08/17/17 History Pioglitazone [Actos] 15 mg PO DAILY 08/02/17 02/09/18 08/17/17 History Acetaminophen [Tylenol Extra 650 mg PO PRN PRN 08/13/17 02/09/18 Unknown History Strength] glipiZIDE [Glucotrol] 10 mg PO BID 08/13/17 02/09/18 08/17/17 History ALBUTEROL NEB's [Proventil 0.083% 2.5 mg IH Q4HRT PRN nebu 02/25/18 Unknown Rx NEBS] Acetaminophen [Acetaminophen TAB] 650 mg PO Q4H PRN tablet 02/25/18 Unknown Rx Ammonium Lactate [Lac-Hydrin 1 applic TP BID bottle 02/25/18 Unknown Rx Lotion] Aspirin EC 325 mg PO DAILY tablet 02/25/18 Unknown Rx DULoxetine [Cymbalta] 60 mg PO QDAY capsule 02/25/18 Unknown Rx Ferrous Sulfate [Feosol 325 MG tab] 325 mg PO BID tablet 02/25/18 Unknown Rx Haloperidol [Haldol] 10 mg PO BID tablet 02/25/18 Unknown Rx Insulin Regular, Human [HumuLIN R] 0 units SUB-Q ACHS units 02/25/18 Unknown Rx LORazepam [Ativan] 1 mg PO BID tablet 02/25/18 Unknown Rx amLODIPine [Norvasc] 10 mg PO DAILY tablet 02/25/18 Unknown Rx risperiDONE [RisperDAL] 1 mg PO HS tablet 02/25/18 Unknown Rx Vancomycin/Ns 1 gm/250 ml 1 gm IV Q12HR 30 Days vial.port 03/01/18 Unknown Rx cefTRIAXone/NS 2 GM/100 ML 2 gm IV Q24HR 30 Days piggyback 03/01/18 Unknown Rx [Rocephin/Ns 2 gm/100 ml] ED Physical Exam - General Limitations: No Limitations General appearance: alert, in no apparent distress - Head Head exam: Present: atraumatic, normocephalic - Eye Eye exam: Present: normal appearance, PERRL, EOMI Pupils: Present: normal accommodation - ENT ENT exam: Present: mucous membranes moist - Neck Neck exam: Present: normal inspection, full ROM. Absent: tenderness - Respiratory Respiratory exam: Present: normal lung sounds bilaterally, chest wall tendernes s. Absent: respiratory distress, wheezes, stridor - Cardiovascular Cardiovascular Exam: Present: regular rate, normal rhythm. Absent: systolic murmur, diastolic murmur, rubs, gallop - GI/Abdominal GI/Abdominal exam: Present: soft, normal bowel sounds. Absent: distended, tenderness, guarding, rebound, rigid, bruit, hernia - Rectal Rectal exam: Present: deferred - Extremities Exam Extremities exam: Present: full ROM, normal capillary refill, joint swelling, other (left lateral post wound healing no drainage no bleeding ). Absent: tenderness - Expanded Lower Extremity Exam Left Ankle exam: Present: full ROM, swelling, deformity. Absent: tenderness, abrasion, laceration, ecchymosis, crepidus, dislocation, erythema, anterior draw sign Foot/Toe exam: Present: full ROM. Absent: tenderness Neuro vascular tendon exam: Absent: pulse deficit, motor deficit, sensory deficit, tendon deficit, peroneal nerve deficit Gait: Positive: observed and normal (pt bearing weight to baseline with laura boot and kc) - Back Exam Back exam: Present: normal inspection, full ROM. Absent: tenderness, CVA tenderness (R), CVA tenderness (L), muscle spasm, paraspinal tenderness, rash noted - Neurological Exam Neurological exam: Present: alert, oriented X3, CN II-XII intact, normal gait, reflexes normal. Absent: motor sensory deficit - Psychiatric Psychiatric exam: Present: normal affect, normal mood - Skin Skin exam: Present: warm, dry, intact, normal color. Absent: rash ED Course Vital Signs 05/29/19 05/29/19 05/29/19 18:03 18:07 20:46 Temperature 98.6 F Pulse Rate 88 Respiratory 16 18 18 Rate Blood Pressure 128/67 [Right] O2 Sat by Pulse Oximetry 05/29/19 20:59 Temperature 98.2 F Pulse Rate 79 Respiratory 20 Rate Blood Pressure 134/80 [Right] O2 Sat by Pulse 99 Oximetry - Reevaluation(s) Reevaluation #1: PET Evaluation recommendation OK for DC , no SI No HI, pt at baseline, will round on patient again in am if still in ED. 05/30/19 11:38 ED Medical Decision Making - Lab Data Result diagrams: 05/29/19 19:03 05/29/19 22:00 Labs 05/29/19 05/29/19 05/29/19 18:07 19:03 19:03 WBC 5.4 RBC 3.50 L Hgb 10.9 L Hct 32.9 L MCV 94 MCH 31 MCHC 33 RDW 12.1 L Plt Count 189 PT 13.2 INR 1.03 VBG pH Sodium Potassium Chloride Carbon Dioxide Anion Gap BUN Creatinine Estimated GFR BUN/Creatinine Ratio Glucose POC Glucose 394 H Calcium Magnesium Total Bilirubin AST ALT Alkaline Phosphatase Total Creatine Kinase Total Protein Albumin Albumin/Globulin Ratio Urine Color Urine Turbidity Urine pH Ur Specific Cascade Urine Protein Urine Glucose (UA) Urine Ketones Urine Blood Urine Nitrite Urine Bilirubin Urine Urobilinogen Ur Leukocyte Esterase Urine WBC (Auto) Urine RBC (Auto) Urine Mucus Salicylates Acetaminophen Plasma/Serum Alcohol 05/29/19 05/29/19 05/29/19 19:03 19:03 19:03 WBC RBC Hgb Hct MCV MCH MCHC RDW Plt Count PT INR VBG pH Sodium 130 L Potassium 4.5 Chloride 91.2 L Carbon Dioxide 24 Anion Gap 19 BUN 24 H Creatinine 2.3 H Estimated GFR 35 BUN/Creatinine Ratio 10 Glucose 396 H POC Glucose Calcium 9.3 Magnesium 2.20 Total Bilirubin 0.40 AST 20 ALT 22 Alkaline Phosphatase 108 Total Creatine Kinase 197 H Total Protein 8.1 Albumin 4.2 Albumin/Globulin Ratio 1.1 Urine Color Urine Turbidity Urine pH Ur Specific Cascade Urine Protein Urine Glucose (UA) Urine Ketones Urine Blood Urine Nitrite Urine Bilirubin Urine Urobilinogen Ur Leukocyte Esterase Urine WBC (Auto) Urine RBC (Auto) Urine Mucus Salicylates < 0.3 L Acetaminophen < 5.0 L Plasma/Serum Alcohol 05/29/19 05/29/19 05/29/19 19:03 21:00 21:02 WBC RBC Hgb Hct MCV MCH MCHC RDW Plt Count PT INR VBG pH Sodium Potassium Chloride Carbon Dioxide Anion Gap BUN Creatinine Estimated GFR BUN/Creatinine Ratio Glucose POC Glucose 369 H Calcium Magnesium Total Bilirubin AST ALT Alkaline Phosphatase Total Creatine Kinase Total Protein Albumin Albumin/Globulin Ratio Urine Color Yellow Urine Turbidity Clear Urine pH 5.0 Ur Specific Cascade 1.013 Urine Protein <15 mg/dl Urine Glucose (UA) >=500 Urine Ketones Neg Urine Blood Neg Urine Nitrite Neg Urine Bilirubin Neg Urine Urobilinogen < 2.0 Ur Leukocyte Esterase Neg Urine WBC (Auto) < 1.0 Urine RBC (Auto) 1.0 Urine Mucus Few Salicylates Acetaminophen Plasma/Serum Alcohol < 0.01 05/29/19 05/29/19 22:00 22:00 WBC RBC Hgb Hct MCV MCH MCHC RDW Plt Count PT INR VBG pH 7.370 Sodium 130 L Potassium 4.1 Chloride 93.5 L Carbon Dioxide 25 Anion Gap 16 BUN 23 H Creatinine 2.0 H Estimated GFR 42 BUN/Creatinine Ratio 12 Glucose 378 H POC Glucose Calcium 8.6 Magnesium Total Bilirubin AST ALT Alkaline Phosphatase Total Creatine Kinase Total Protein Albumin Albumin/Globulin Ratio Urine Color Urine Turbidity Urine pH Ur Specific Cascade Urine Protein Urine Glucose (UA) Urine Ketones Urine Blood Urine Nitrite Urine Bilirubin Urine Urobilinogen Ur Leukocyte Esterase Urine WBC (Auto) Urine RBC (Auto) Urine Mucus Salicylates Acetaminophen Plasma/Serum Alcohol - EKG Data EKG shows normal: sinus rhythm - Radiology Data Radiology results: report reviewed, image reviewed Ordering Physician: DEBORAH GARIBAY MD Date of Service: 05/29/19 Procedure(s): CT head/brain wo con Accession Number(s): [id number] cc: DEBORAH GARIBAY MD CT head/brain wo con INDICATION / CLINICAL INFORMATION: behaviour changes. TECHNIQUE: All CT scans at this location are performed using CT dose reduction for ALARA by means of automated exposure control. COMPARISON: None available. FINDINGS: Ventricle size is increased and there is deepening of the cortical sulci consistent with mild cerebral atrophy. No mass or mass effect is seen. There is no evidence of intracranial hemorrhage. No obvious area of infarction is identified. Visualized paranasal sinuses are clear. IMPRESSION: Mild cerebral atrophy. No acute findings Signer Name: Brayan Easley MD FACR Signed: 05/29/2019 7:37 PM Workstation Name: [id number] Transcribed By: MS Dictated By: Brayan Easley MD Electronically Authenticated By: Brayan Easley MD Signed Date/Time: 05/29/191936 DD/ 35 TD/TT: - Medical Decision Making Evaluation completed patient is known to psych staff advised the patient is at baseline there is no SI no HI labs noted for creatinine of 2.3 this is a double elevation for this patient to baseline 1.4 consulted hospitalist plan admit for acute kidney injury hospitalist concurs and agrees patient had given at this time discussed treatment plan and out the patient patient verbalized agreement and understanding of treatment plan patient for admission to hospitalist at this time. Advised [facility] of [facility]. Critical care attestation.: If time is entered above; I have spent that time in minutes in the direct care of this critically ill patient, excluding procedure time. ED Disposition Clinical Impression: ZOEY (acute kidney injury) Disposition: OP ADMIT IP TO THIS HOSP Is pt being admited?: Yes Does the pt Need Aspirin: No Condition: Stable Time of Disposition: 01:20
[2019-05-29 19:41] LABS: INR 1.03 (0.87-1.13)
--- NOTE | 2019-05-29 19:42 | Cat Scan Report ---
CT head/brain wo con INDICATION / CLINICAL INFORMATION: behaviour changes. TECHNIQUE: All CT scans at this location are performed using CT dose reduction for ALARA by means of automated e xposure control. COMPARISON: None available. FINDINGS: Ventricle size is increased and there is deepening of the cortical sulci consistent with mild cerebra l atrophy. No mass or mass effect is seen. There is no evidence of intracranial hemorrhage. No obviou s area of infarction is identified. Visualized paranasal sinuses are clear. IMPRESSION: Mild cerebral atrophy. No acute findings Signer Name: Brayan Easley MD FACR Signed: 05/29/2019 7:37 PM Workstation Name: [id number]
[2019-05-29 19:45] LABS: Albumin 4.2 g/dL (3.9-5); Calcium 9.3 mg/dL (8.4-10.2)
[2019-05-29 19:47] LABS: Hematocrit 32.9 % (35.5-45.6); Hemoglobin 10.9 gm/dl (11.8-15.2); Mean Corpuscular HGB Conc 33 % (32-34); Mean Corpuscular Volume 94 fl (84-94); Platelet Count 189 K/mm3 (140-440); Red Cell Distribution Width 12.1 % (13.2-15.2)
[2019-05-29] MEDS ORDERED: NACL 0.9% 1000 ML 1,000 ML IV ONE (20:14)
[2019-05-29 21:40] LABS: Bilirubin,Urine NEG (Negative); Blood,Urine NEG (Negative); Color,Urine Yellow (Yellow); Mucus,Urine FEW /HPF; Protein,Urine <15 mg/dL mg/dL (Negative); Urobilinogen,Urine < 2.0 mg/dL (<2.0); WBC,Urine < 1.0 /HPF (0.0-6.0)
[2019-05-29] MEDS ORDERED: ATIVAN ONE (21:58)
[2019-05-29 22:25] LABS: Calcium 8.6 mg/dL (8.4-10.2)
[2019-05-30] MEDS ORDERED: HumuLIN R SUB-Q ONE (00:56)
[2019-05-30] MEDS ORDERED: NACL 0.9% 1000 ML 1,000 ML IV ONE ×2 (00:56)
[2019-05-30] MEDS ORDERED: ZOFRAN IV PRN (01:09)
[2019-05-30] MEDS ORDERED: PERCOCET 5/325 PO PRN (01:09)
[2019-05-30] MEDS ORDERED: SODIUM CHLORIDE FLUSH SYRINGE 10 ML IV PRN (01:09)
[2019-05-30] MEDS ORDERED: TYLENOL PO PRN ×2 (01:09→07:19)
[2019-05-30] MEDS ORDERED: D5NS 1,000 ML IV SCH (02:00)
--- NOTE | 2019-05-30 02:19 | History and Physical Report ---
<PRIMO SEGUNDO - Last Filed: 05/30/19 04:02> History of Present Illness Date of examination: 05/30/19 Date of admission: 05/30/2019 Chief complaint: c/o hearing voices, hyperglycemia History of present illness: Pt is a 57 year old male with PMHx of schizophrenia, dementia, DM type 2, HTN who was brought to the ER with c/o hearing voices and hyperglycemia. Pt resides in a personal senior living, he reports hearing voices, pt blood glucose was done at the personal senior living and was found to be elevated. Pt was seen in the ER, he was alert and calm, he reports that he always hear voices but this week he hears them more, he states that he hears different voices including his nephew and his brother, he states that his brother lives in [place]. Pt states that he also hears other family members voices too, but their voices are interfering and they are really upset with him. Pt denies any headache, denies any acute illness, denies blurry vision, denies any hear pain, denies ringing in the year. Past History Past Medical History: hypertension Past Surgical History: Other (left ankle fx s/ ORIF) Social history: other (live in a personel home care) Medications and Allergies Allergies Allergy/AdvReac Type Severity Reaction Status Date / Time aripiprazole [From Abilify] Allergy Unknown Verified 06/30/18 13:08 divalproex sodium Allergy Unknown Verified 06/30/18 13:08 [From Depakote] enalapril Allergy Unknown Verified 06/30/18 13:08 fluoxetine HCl [From Prozac] Allergy Unknown Verified 06/30/18 13:08 fluphenazine Allergy Unknown Verified 06/30/18 13:08 lithium Allergy Unknown Verified 06/30/18 13:08 loxapine Allergy Unknown Verified 06/30/18 13:08 sertraline HCl [From Zoloft] Allergy Unknown Verified 06/30/18 13:08 ziprasidone HCl [From Geodon] Allergy Unknown Verified 06/30/18 13:08 ziprasidone mesylate Allergy Unknown Verified 02/09/18 16:31 [From Geodon] Home Medications Medication Instructions Recorded Confirmed Last Taken Type hydroCHLOROthiazide [HCTZ] 12.5 mg PO QDAY #30 capsule 10/15/16 05/30/19 08/17/17 Rx risperiDONE [RisperiDONE] 4 mg PO BID 02/09/17 05/30/19 08/17/17 History Pioglitazone [Actos] 15 mg PO DAILY 08/02/17 05/30/19 08/17/17 History glipiZIDE [Glucotrol] 10 mg PO BID 08/13/17 05/30/19 08/17/17 History Aspirin EC 325 mg PO DAILY tablet 02/25/18 05/30/19 Unknown Rx DULoxetine [Cymbalta] 60 mg PO QDAY capsule 02/25/18 05/30/19 Unknown Rx Ferrous Sulfate [Feosol 325 MG tab] 325 mg PO BID tablet 02/25/18 05/30/19 Unknown Rx amLODIPine [Norvasc] 10 mg PO DAILY tablet 02/25/18 05/30/19 Unknown Rx Acetaminophen [Acetaminophen TAB] 650 mg PO Q8HR PRN 05/30/19 05/30/19 Unknown History Ammonium Lactate [Lac-Hydrin 1 applic TP QDAY 05/30/19 05/30/19 Unknown History Lotion] AtorvaSTATin [Lipitor] 20 mg PO QDAY 05/30/19 05/30/19 Unknown History Haloperidol [Haldol] 2.5 mg PO BID 05/30/19 05/30/19 Unknown History traZODone [Desyrel] 100 mg PO QHS 05/30/19 05/30/19 Unknown History Active Meds: Active Medications Acetaminophen (Tylenol) 650 mg PO Q4H PRN PRN Reason: Pain MILD(1-3)/Fever >100.5/LAN Enoxaparin Sodium (Lovenox) 40 mg SUB-Q QDAY JOSE Sodium Chloride (Nacl 0.9% 1000 Ml) 1,000 mls @ 250 mls/hr IV ONCE ONE Stop: 05/30/19 04:55 Dextrose/Sodium Chloride (D5ns) 1,000 mls @ 75 mls/hr IV DIRECT JOSE Ondansetron HCl (Zofran) 4 mg IV Q8H PRN PRN Reason: Nausea And Vomiting Oxycodone/Acetaminophen (Percocet 5/325) 1 tab PO Q6H PRN PRN Reason: Pain, Moderate (4-6) Sodium Chloride (Sodium Chloride Flush Syringe 10 Ml) 10 ml IV BID JOSE Sodium Chloride (Sodium Chloride Flush Syringe 10 Ml) 10 ml IV PRN PRN PRN Reason: LINE FLUSH Review of Systems Musculoskeletal: shooting leg pain, other (left leg/ankle) Psychiatric: hallucinations (auditory hallucination) Exam - Constitutional Vitals: Temp Pulse Resp BP Pulse Ox 98.2 F 79 20 134/80 99 05/29/19 20:59 05/29/19 20:59 05/29/19 20:59 05/29/19 20:59 05/29/19 20:59 General appearance: Present: no acute distress - EENT Eyes: Present: PERRL, EOM intact ENT: hearing intact - Neck Neck: Present: supple - Respiratory Respiratory effort: normal Respiratory: bilateral: CTA - Cardiovascular Rhythm: regular Heart Sounds: Present: S1 & S2 - Extremities Extremity abnormal: other (limited ROM) Peripheral Pulses: within normal limits - Abdominal General gastrointestinal: Present: non-tender, non-distended Localized gastrointestinal: tender: epigastric periumbilical Male genitourinary: Present: deferred - Rectal Rectal Exam: deferred - Integumentary Integumentary: Present: warm, dry - Musculoskeletal Musculoskeletal: left sided weakness (leg leg /pain, impair mobility) - Psychiatric Psychiatric: appropriate mood/affect - Neurologic Neurologic: moves all extremities Results - Labs CBC & Chem 7: 05/29/19 19:03 05/29/19 22:00 Labs: Laboratory Last Values WBC 5.4 K/mm3 (4.5-11.0) 05/29/19 19:03 RBC 3.50 M/mm3 (3.65-5.03) L 05/29/19 19:03 Hgb 10.9 gm/dl (11.8-15.2) L 05/29/19 19:03 Hct 32.9 % (35.5-45.6) L 05/29/19 19:03 MCV 94 fl (84-94) 05/29/19 19:03 MCH 31 pg (28-32) 05/29/19 19:03 MCHC 33 % (32-34) 05/29/19 19:03 RDW 12.1 % (13.2-15.2) L 05/29/19 19:03 Plt Count 189 K/mm3 (140-440) 05/29/19 19:03 PT 13.2 Sec. (12.2-14.9) 05/29/19 19:03 INR 1.03 (0.87-1.13) 05/29/19 19:03 VBG pH 7.370 (7.320-7.420) 05/29/19 22:00 Sodium 130 mmol/L (137-145) L 05/29/19 22:00 Potassium 4.1 mmol/L (3.6-5.0) 05/29/19 22:00 Chloride 93.5 mmol/L (98-107) L 05/29/19 22:00 Carbon Dioxide 25 mmol/L (22-30) 05/29/19 22:00 16 mmol/L 05/29/19 22:00 BUN 23 mg/dL (9-20) H 05/29/19 22:00 2.0 mg/dL (0.8-1.5) H 05/29/19 22:00 Estimated GFR 42 ml/min 05/29/19 22:00 12 % 05/29/19 22:00 Glucose 378 mg/dL (75-100) H 05/29/19 22:00 POC Glucose 332 (70-105) H 05/30/19 01:36 Calcium 8.6 mg/dL (8.4-10.2) 05/29/19 22:00 Magnesium 2.20 mg/dL (1.7-2.3) 05/29/19 19:03 0.40 mg/dL (0.1-1.2) 05/29/19 19:03 AST 20 units/L (5-40) 05/29/19 19:03 ALT 22 units/L (7-56) 05/29/19 19:03 108 units/L (35-129) 05/29/19 19:03 197 units/L (55-170) H 05/29/19 19:03 8.1 g/dL (6.3-8.2) 05/29/19 19:03 4.2 g/dL (3.9-5) 05/29/19 19:03 1.1 % 05/29/19 19:03 Yellow (Yellow) 05/29/19 21:00 Clear (Clear) 05/29/19 21:00 5.0 (5.0-7.0) 05/29/19 21:00 Ur Specific [place] 1.013 (1.003-1.030) 05/29/19 21:00 <15 mg/dl mg/dL (Negative) 05/29/19 21:00 >=500 mg/dL (Negative) 05/29/19 21:00 Neg mg/dL (Negative) 05/29/19 21:00 Neg (Negative) 05/29/19 21:00 Neg (Negative) 05/29/19 21:00 Neg (Negative) 05/29/19 21:00 < 2.0 mg/dL (<2.0) 05/29/19 21:00 Ur Leukocyte Esterase Neg (Negative) 05/29/19 21:00 < 1.0 /HPF (0.0-6.0) 05/29/19 21:00 1.0 /HPF (0.0-6.0) 05/29/19 21:00 Few /HPF 05/29/19 21:00 Salicylates < 0.3 mg/dL (2.8-20.0) L 05/29/19 19:03 Acetaminophen < 5.0 ug/mL (10.0-30.0) L 05/29/19 19:03 Plasma/Serum Alcohol < 0.01 % (0-0.07) 05/29/19 19:03 Assessment and Plan Assessment and plan: 1. Hyperglecemia 2. Uncontrolled DM x 2 3. Hearing voices 4. H/o psychzophrenia 5. Hypertension 6. ZOEY/CKD (baseline unknown) 7. Chronic left foot/ankle pain s/p ORIF Plan: Admit to remote tele Consult psych for evaluation Consult nephrology for evaluation IVF with NS at 100ml/hr for hydration, renal perfusion Repeat Sodium level in am Continue Accu check ACHS with insulin per sliding scale Plan of care was d/w pt, voiced understanding Pt's condition and plan of care of care discussed with the attending Advance Directives: Yes VTE prophylaxis?: Chemical Plan of care discussed with patient/family: Yes <PAUL CHAVEZ - Last Filed: 05/30/19 06:09> History of Present Illness Date of admission: 05/30/19 02:19 Medications and Allergies Active Meds: Active Medications Acetaminophen (Tylenol) 650 mg PO Q4H PRN PRN Reason: Pain MILD(1-3)/Fever >100.5/LAN Dextrose (D50w (25gm) Syringe) 50 ml IV PRN PRN PRN Reason: Hypoglycemia Enoxaparin Sodium (Lovenox) 40 mg SUB-Q QDAY JOSE Sodium Chloride (Nacl 0.9% 1000 Ml) 1,000 mls @ 125 mls/hr IV DIRECT JOSE Insulin Human Lispro (Humalog) 0 unit SUB-Q ACHS JOSE; Protocol Ondansetron HCl (Zofran) 4 mg IV Q8H PRN PRN Reason: Nausea And Vomiting Oxycodone/Acetaminophen (Percocet 5/325) 1 tab PO Q6H PRN PRN Reason: Pain, Moderate (4-6) Sodium Chloride (Sodium Chloride Flush Syringe 10 Ml) 10 ml IV BID JOSE Sodium Chloride (Sodium Chloride Flush Syringe 10 Ml) 10 ml IV PRN PRN PRN Reason: LINE FLUSH Exam - Constitutional Vitals: Temp Pulse Resp BP Pulse Ox 98.2 F 76 16 154/73 97 05/30/19 02:50 05/30/19 02:50 05/30/19 02:50 05/30/19 02:50 05/30/19 02:50 Results - Labs CBC & Chem 7: 05/29/19 19:03 05/29/19 22:00 Labs: Laboratory Last Values WBC 5.4 K/mm3 (4.5-11.0) 05/29/19 19:03 RBC 3.50 M/mm3 (3.65-5.03) L 05/29/19 19:03 Hgb 10.9 gm/dl (11.8-15.2) L 05/29/19 19:03 Hct 32.9 % (35.5-45.6) L 05/29/19 19:03 MCV 94 fl (84-94) 05/29/19 19:03 MCH 31 pg (28-32) 05/29/19 19:03 MCHC 33 % (32-34) 05/29/19 19:03 RDW 12.1 % (13.2-15.2) L 05/29/19 19:03 Plt Count 189 K/mm3 (140-440) 05/29/19 19:03 PT 13.2 Sec. (12.2-14.9) 05/29/19 19:03 INR 1.03 (0.87-1.13) 05/29/19 19:03 VBG pH 7.370 (7.320-7.420) 05/29/19 22:00 Sodium 130 mmol/L (137-145) L 05/29/19 22:00 Potassium 4.1 mmol/L (3.6-5.0) 05/29/19 22:00 Chloride 93.5 mmol/L (98-107) L 05/29/19 22:00 Carbon Dioxide 25 mmol/L (22-30) 05/29/19 22:00 16 mmol/L 05/29/19 22:00 BUN 23 mg/dL (9-20) H 05/29/19 22:00 2.0 mg/dL (0.8-1.5) H 05/29/19 22:00 Estimated GFR 42 ml/min 05/29/19 22:00 12 % 05/29/19 22:00 Glucose 378 mg/dL (75-100) H 05/29/19 22:00 POC Glucose 346 (70-105) H 05/30/19 02:49 Calcium 8.6 mg/dL (8.4-10.2) 05/29/19 22:00 Magnesium 2.20 mg/dL (1.7-2.3) 05/29/19 19:03 0.40 mg/dL (0.1-1.2) 05/29/19 19:03 AST 20 units/L (5-40) 05/29/19 19:03 ALT 22 units/L (7-56) 05/29/19 19:03 108 units/L (35-129) 05/29/19 19:03 197 units/L (55-170) H 05/29/19 19:03 8.1 g/dL (6.3-8.2) 05/29/19 19:03 4.2 g/dL (3.9-5) 05/29/19 19:03 1.1 % 05/29/19 19:03 Yellow (Yellow) 05/29/19 21:00 Clear (Clear) 05/29/19 21:00 5.0 (5.0-7.0) 05/29/19 21:00 Ur Specific [place] 1.013 (1.003-1.030) 05/29/19 21:00 <15 mg/dl mg/dL (Negative) 05/29/19 21:00 >=500 mg/dL (Negative) 05/29/19 21:00 Neg mg/dL (Negative) 05/29/19 21:00 Neg (Negative) 05/29/19 21:00 Neg (Negative) 05/29/19 21:00 Neg (Negative) 05/29/19 21:00 < 2.0 mg/dL (<2.0) 05/29/19 21:00 Ur Leukocyte Esterase Neg (Negative) 05/29/19 21:00 < 1.0 /HPF (0.0-6.0) 05/29/19 21:00 1.0 /HPF (0.0-6.0) 05/29/19 21:00 Few /HPF 05/29/19 21:00 Salicylates < 0.3 mg/dL (2.8-20.0) L 05/29/19 19:03 Acetaminophen < 5.0 ug/mL (10.0-30.0) L 05/29/19 19:03 Plasma/Serum Alcohol < 0.01 % (0-0.07) 05/29/19 19:03 Assessment and Plan Assessment and plan: 58-year-old man with a history of schizophrenia, dementia, diabetes, hypertensi on was brought to the emergency room for evaluation because he was not acting right. He admits to hearing voices however he denies any homicidal or suicidal ideations. He was found to be in acute renal failure I will started on IV fluids, is renal function has been improving, change fluids from D5 half normal to normal saline, consult psych
[2019-05-30] MEDS ORDERED: D50W (25GM) Syringe IV PRN (06:05)
[2019-05-30] MEDS: NACL 0.9% 1000 ML 1,000 ML IV SCH ×3 (06:27→22:58)
[2019-05-30] MEDS: GLUCOTROL PO SCH ×2 (08:47→17:45)
[2019-05-30] MEDS: HumaLOG SUB-Q SCH ×4 (08:50→22:53)
[2019-05-30] MEDS: ACTOS PO SCH (09:47)
[2019-05-30] MEDS: CYMBALTA PO SCH (09:47)
[2019-05-30] MEDS: FEOSOL PO SCH ×2 (09:48→21:59)
[2019-05-30] MEDS: NORVASC PO SCH (09:48)
[2019-05-30] MEDS: LOVENOX SUB-Q SCH (09:48)
[2019-05-30] MEDS: RisperDAL PO SCH ×2 (09:48→22:00)
[2019-05-30] MEDS: HALDOL PO SCH ×2 (09:48→22:00)
[2019-05-30] MEDS: ECOTRIN PO SCH (09:48)
[2019-05-30] MEDS: SODIUM CHLORIDE FLUSH SYRINGE 10 ML IV SCH ×2 (09:49→22:04)
--- NOTE | 2019-05-30 10:09 | Progress Note ---
Assessment and Plan Assessment and plan: Diabetes mellitus type 2. Uncontrolled. Improved this morning. Resume Glucotrol and Actos. Continue Accu-Cheks and sliding scale insulin. Hypertension. Resume antihypertensive medications. Acute kidney injury on CKD. Baseline creatinine unknown. Continue IV fluid hydration and follow-up BMP. Hold hydrochlorothiazide. Hyponatremia. Continue IV fluid hydration and hold diuretic. Chronic left foot/ankle pain s/p ORIF Schizophrenia. Resume medications--Haldol and risperidone. Mental health evaluation pending. History Interval history: No new issues overnight Hospitalist Physical - Constitutional Vitals: Temp Pulse Resp BP Pulse Ox 98.1 F 71 17 139/71 99 05/30/19 04:57 05/30/19 04:57 05/30/19 04:57 05/30/19 04:57 05/30/19 04:57 General appearance: Present: no acute distress - EENT Eyes: Present: PERRL, EOM intact ENT: hearing intact, clear oral mucosa, dentition normal - Neck Neck: Present: supple, normal ROM - Respiratory Respiratory effort: normal Respiratory: bilateral: CTA - Cardiovascular Rhythm: regular Heart Sounds: Present: S1 & S2. Absent: gallop, rub - Extremities Extremities: no ischemia, No edema, Full ROM - Abdominal General gastrointestinal: soft, non-tender, non-distended, normal bowel sounds - Integumentary Integumentary: Present: clear, warm, dry - Neurologic Neurologic: CNII-XII intact, moves all extremities Results - Labs CBC & Chem 7: 05/29/19 19:03 05/29/19 22:00 Labs: Laboratory Last Values WBC 5.4 K/mm3 (4.5-11.0) 05/29/19 19: RBC 3.50 M/mm3 (3.65-5.03) L 05/29/19 19:03 Hgb 10.9 gm/dl (11.8-15.2) L 05/29/19 19:03 Hct 32.9 % (35.5-45.6) L 05/29/19 19:03 MCV 94 fl (84-94) 05/29/19 19:03 MCH 31 pg (28-32) 05/29/19 19: MCHC 33 % (32-34) 05/29/19 19:03 RDW 12.1 % (13.2-15.2) L 05/29/19 19:03 Plt Count 189 K/mm3 (140-440) 05/29/19 19:03 PT 13.2 Sec. (12.2-14.9) 05/29/19 19:03 INR 1.03 (0.87-1.13) 05/29/19 19:03 VBG pH 7.370 (7.320-7.420) 05/29/19 22:00 Sodium 130 mmol/L (137-145) L 05/29/19 22:00 Potassium 4.1 mmol/L (3.6-5.0) 05/29/19 22:00 Chloride 93.5 mmol/L (98-107) L 05/29/19 22:00 Carbon Dioxide 25 mmol/L (22-30) 05/29/19 22:00 16 mmol/L 05/29/19 22:00 BUN 23 mg/dL (9-20) H 05/29/19 22:00 2.0 mg/dL (0.8-1.5) H 05/29/19 22:00 Estimated GFR 42 ml/min 05/29/19 22:00 12 % 05/29/19 22:00 Glucose 378 mg/dL (75-100) H 05/29/19 22:00 POC Glucose 92 (70-105) 05/30/19 07:36 Calcium 8.6 mg/dL (8.4-10.2) 05/29/19 22:00 Magnesium 2.20 mg/dL (1.7-2.3) 05/29/19 19:03 0.40 mg/dL (0.1-1.2) 05/29/19 19:03 AST 20 units/L (5-40) 05/29/19 19:03 ALT 22 units/L (7-56) 05/29/19 19:03 108 units/L (35-129) 05/29/19 19:03 197 units/L (55-170) H 05/29/19 19:03 8.1 g/dL (6.3-8.2) 05/29/19 19:03 4.2 g/dL (3.9-5) 05/29/19 19:03 1.1 % 05/29/19 19:03 Yellow (Yellow) 05/29/19 21:00 Clear (Clear) 05/29/19 21:00 5.0 (5.0-7.0) 05/29/19 21:00 Ur Specific [place] 1.013 (1.003-1.030) 05/29/19 21:00 <15 mg/dl mg/dL (Negative) 05/29/19 21:00 >=500 mg/dL (Negative) 05/29/19 21:00 Neg mg/dL (Negative) 05/29/19 21:00 Neg (Negative) 05/29/19 21:00 Neg (Negative) 05/29/19 21:00 Neg (Negative) 05/29/19 21:00 < 2.0 mg/dL (<2.0) 05/29/19 21:00 Ur Leukocyte Esterase Neg (Negative) 05/29/19 21:00 < 1.0 /HPF (0.0-6.0) 05/29/19 21:00 1.0 /HPF (0.0-6.0) 05/29/19 21:00 Few /HPF 05/29/19 21:00 Salicylates < 0.3 mg/dL (2.8-20.0) L 05/29/19 19:03 Acetaminophen < 5.0 ug/mL (10.0-30.0) L 05/29/19 19:03 Plasma/Serum Alcohol < 0.01 % (0-0.07) 05/29/19 19:03 Active Medications - Current Medications Current Medications: Generic Name Dose Route Start Last Admin Trade Name Freq PRN Reason Stop Dose Admin Acetaminophen 650 mg 05/30/19 07:19 Tylenol PO Q8HR PRN Pain MILD(1-3)/Fever >100.5/LAN Amlodipine Besylate 10 mg 05/30/19 10:00 05/30/19 09:48 Norvasc PO 10 mg DAILY JOSE Administration Aspirin 325 mg 05/30/19 10:00 05/30/19 09:48 Ecotrin PO 325 mg DAILY JOSE Administration Atorvastatin Calcium 20 mg 05/30/19 10:00 05/30/19 09:48 Lipitor PO 20 mg QDAY JOSE Administration Dextrose 50 ml 05/30/19 06:05 D50w (25gm) Syringe IV PRN PRN Hypoglycemia Duloxetine HCl 60 mg 05/30/19 10:00 05/30/19 09:47 Cymbalta PO 60 mg QDAY JOSE Administration Enoxaparin Sodium 40 mg 05/30/19 10:00 05/30/19 09:48 Lovenox SUB-Q 40 mg QDAY JOSE Administration Ferrous Sulfate 325 mg 05/30/19 10:00 05/30/19 09:48 Feosol PO 325 mg BID JOSE Administration Glipizide 10 mg 05/30/19 08:00 05/30/19 08:47 Glucotrol PO 10 mg BIDDIAB JOSE Administration Haloperidol 2.5 mg 05/30/19 10:00 05/30/19 09:48 Haldol PO 2.5 mg BID JOSE Administration Sodium Chloride 1,000 mls @ 125 mls/hr 05/30/19 07:00 05/30/19 06:27 Nacl 0.9% 1000 Ml IV 125 mls/hr DIRECT JOSE Administration Insulin Human Lispro 0 unit 05/30/19 07:30 05/30/19 08:50 Humalog SUB-Q Not Given ACHS [facility] Protocol Ondansetron HCl 4 mg 05/30/19 01:09 Zofran IV Q8H PRN Nausea And Vomiting Oxycodone/Acetaminophen 1 tab 05/30/19 01:09 Percocet 5/325 PO Q6H PRN Pain, Moderate (4-6) Pioglitazone HCl 15 mg 05/30/19 08:00 05/30/19 09:47 Actos PO 15 mg DAILY@0800 JOSE Administration Risperidone 4 mg 05/30/19 10:00 05/30/19 09:48 Risperdal PO 4 mg BID JOSE Administration Sodium Chloride 10 ml 05/30/19 10:00 05/30/19 09:49 Sodium Chloride Flush Syringe 10 Ml IV 10 ml BID JOSE Administration Sodium Chloride 10 ml 05/30/19 01:09 Sodium Chloride Flush Syringe 10 Ml IV PRN PRN LINE FLUSH Trazodone HCl 100 mg 05/30/19 22:00 Desyrel PO QHS JOSE
[2019-05-30] MEDS ORDERED: DESYREL PO SCH (22:00)
[2019-05-31] MEDS: NACL 0.9% 1000 ML 1,000 ML IV SCH (06:29)
[2019-05-31] MEDS: GLUCOTROL PO SCH ×2 (08:38→17:21)
[2019-05-31] MEDS: ACTOS PO SCH (08:38)
[2019-05-31] MEDS: HumaLOG SUB-Q SCH ×3 (08:39→17:21)
[2019-05-31 09:30] LABS: BUN/Creatinine Ratio 9; Blood Urea Nitrogen 12 mg/dL (9-20); Calcium 8.7 mg/dL (8.4-10.2); Hemolysis Index 3
[2019-05-31] MEDS: HALDOL PO SCH (09:51)
[2019-05-31] MEDS: CYMBALTA PO SCH (09:51)
[2019-05-31] MEDS: LOVENOX SUB-Q SCH (09:51)
[2019-05-31] MEDS: NORVASC PO SCH (09:51)
[2019-05-31] MEDS: RisperDAL PO SCH (09:51)
[2019-05-31] MEDS: FEOSOL PO SCH (09:51)
[2019-05-31] MEDS: ECOTRIN PO SCH (09:51)
[2019-05-31] MEDS: SODIUM CHLORIDE FLUSH SYRINGE 10 ML IV SCH (09:52)
--- NOTE | 2019-05-31 10:56 | Consultation ---
History of Present Illness - Reason for Consult Consult date: 05/31/19 Reason for consult: Initial Psychiatric Evaluation - Chief Complaint Chief complaint: " Pretty much the same" - History of Present Psychiatric Illness Patient is a 58 year old male who presents to the hospital with auditory hallucinations. Patient has PPHx of schizophrenia, HTN, DMII, dementia, and ORIF left ankle who presents for hyperglycemia, nausea and vomiting, and altered mental status. Patient is a resident of [facility], with hx of per Virtual Customer Assistant Ramila Luque [phone] , pt has chronic problem dementia and auditory hallucinations. Today patient is calm and cooperative during the assessment. Patient is alert and oriented x 2. Intermittent confusion noted. Patient endorses auditory hallucinations. He is unable to tell provider exactly what they're saying. Responses to questions are inappropriate at times. Patient denies SI/HI's and delusions. Current Psychiatric Medications: Cymbalta 60mg po Qdaily, Risperdal 4mg po BID, and Trazodone 100mg po QHS. Past Psychiatric History: Schizophrenia (1981); Unable to recall psychiatric history - intermittent confusion. Past Medication Trials: Patient unable to recall. History of Drugs/Alcohol Abuse: Patient denies alcohol/drug abuse. History of Trauma/Abuse: Patient denies trauma; Patient denies sexual, p hysical, and mental abuse. Social History: High School Diploma, [employer]; Resides at [facility]; no pending legal issues. Family History of Psychiatric Illness/Substance Abuse: Patient denies. Medications and Allergies Allergies Allergy/AdvReac Type Severity Reaction Status Date / Time aripiprazole [From Abilify] Allergy Unknown Verified 06/30/18 13:08 divalproex sodium Allergy Unknown Verified 06/30/18 13:08 [From Depakote] enalapril Allergy Unknown Verified 06/30/18 13:08 fluoxetine HCl [From Prozac] Allergy Unknown Verified 06/30/18 13:08 fluphenazine Allergy Unknown Verified 06/30/18 13:08 lithium Allergy Unknown Verified 06/30/18 13:08 loxapine Allergy Unknown Verified 06/30/18 13:08 sertraline HCl [From Zoloft] Allergy Unknown Verified 06/30/18 13:08 ziprasidone HCl [From Geodon] Allergy Unknown Verified 06/30/18 13:08 ziprasidone mesylate Allergy Unknown Verified 02/09/18 16:31 [From Mary] Home Medications Medication Instructions Recorded Confirmed Last Taken Type hydroCHLOROthiazide [HCTZ] 12.5 mg PO QDAY #30 capsule 10/15/16 05/30/19 08/17/17 Rx Ammonium Lactate [Lac-Hydrin 1 applic TP QDAY 05/30/19 05/30/19 Unknown History Lotion] Aspirin EC 325 mg PO DAILY #30 tablet 05/31/19 Unknown Rx AtorvaSTATin [Lipitor] 20 mg PO QDAY #30 tablet 05/31/19 Unknown Rx DULoxetine [Cymbalta] 60 mg PO QDAY #30 capsule 05/31/19 Unknown Rx Ferrous Sulfate [Feosol 325 MG tab] 325 mg PO BID #60 tablet 05/31/19 Unknown Rx Haloperidol [Haldol] 2.5 mg PO BID #60 tablet 05/31/19 Unknown Rx Pioglitazone [Actos] 15 mg PO DAILY #30 tablet 05/31/19 Unknown Rx amLODIPine [Norvasc] 10 mg PO DAILY #30 tablet 05/31/19 Unknown Rx glipiZIDE [Glucotrol] 10 mg PO BID #60 tablet 05/31/19 Unknown Rx risperiDONE [RisperiDONE] 4 mg PO BID #60 tablet 05/31/19 Unknown Rx traZODone [Desyrel] 100 mg PO QHS #30 tablet 05/31/19 Unknown Rx Active Meds: Active Medications Acetaminophen (Tylenol) 650 mg PO Q8HR PRN PRN Reason: Pain MILD(1-3)/Fever >100.5/LAN Amlodipine Besylate (Norvasc) 10 mg PO DAILY [facility] Last Admin: 05/31/19 09:51 Dose: 10 mg Documented by: Aspirin (Ecotrin) 325 mg PO DAILY [facility] Last Admin: 05/31/19 09:51 Dose: 325 mg Documented by: Atorvastatin Calcium (Lipitor) 20 mg PO QDAY [facility] Last Admin: 05/31/19 09:51 Dose: 20 mg Documented by: Dextrose (D50w (25gm) Syringe) 50 ml IV PRN PRN PRN Reason: Hypoglycemia Duloxetine HCl (Cymbalta) 60 mg PO QDAY [facility] Last Admin: 05/31/19 09:51 Dose: 60 mg Documented by: Enoxaparin Sodium (Lovenox) 40 mg SUB-Q QDAY [facility] Last Admin: 05/31/19 09:51 Dose: 40 mg Documented by: Ferrous Sulfate (Feosol) 325 mg PO BID [facility] Last Admin: 05/31/19 09:51 Dose: 325 mg Documented by: Glipizide (Glucotrol) 10 mg PO BIDDIAB [facility] Last Admin: 05/31/19 08:38 Dose: 10 mg Documented by: Haloperidol (Haldol) 2.5 mg PO BID [facility] Last Admin: 05/31/19 09:51 Dose: 2.5 mg Documented by: Sodium Chloride (Nacl 0.9% 1000 Ml) 1,000 mls @ 125 mls/hr IV DIRECT [facility] Last Admin: 05/31/19 06:29 Dose: 125 mls/hr Documented by: Insulin Human Lispro (Humalog) 0 unit SUB-Q ACHS [facility]; Protocol Last Admin: 05/31/19 08:39 Dose: 4 unit Documented by: Ondansetron HCl (Zofran) 4 mg IV Q8H PRN PRN Reason: Nausea And Vomiting Oxycodone/Acetaminophen (Percocet 5/325) 1 tab PO Q6H PRN PRN Reason: Pain, Moderate (4-6) Pioglitazone HCl (Actos) 15 mg PO DAILY@0800 [facility] Last Admin: 05/31/19 08:38 Dose: 15 mg Documented by: Risperidone (Risperdal) 4 mg PO BID [facility] Last Admin: 05/31/19 09:51 Dose: 4 mg Documented by: Sodium Chloride (Sodium Chloride Flush Syringe 10 Ml) 10 ml IV BID [facility] Last Admin: 05/31/19 09:52 Dose: 10 ml Documented by: Sodium Chloride (Sodium Chloride Flush Syringe 10 Ml) 10 ml IV PRN PRN PRN Reason: LINE FLUSH Trazodone HCl (Desyrel) 100 mg PO QHS [facility] Last Admin: 05/30/19 21:59 Dose: 100 mg Documented by: Mental Status Exam - Vital signs Last Vital Signs Temp 99.0 F 05/31/19 05:14 Pulse 73 05/31/19 05:14 Resp 16 05/31/19 05:14 BP 122/65 05/31/19 05:14 Pulse Ox 99 05/31/19 05:14 - Exam Narrative exam: Mental Status Exam Appearance: calm Behavior: regular eye contact Speech: regular rate and tone Mood: " I feel alright" Affect: congruent to mood Thought Process: circumstantial Thought Content: denies SI/HI's, VH's, and delusions; + AH's- chronic Motor Activity: ambulatory Cognition: A/O x 2- intermittent confusion Insight: variable Judgment: variable Results Result Diagrams: 05/29/19 19:03 05/31/19 08:46 Abnormal lab results 05/30/19 05/30/19 05/31/19 Range/Units 11:23 17:06 07:40 Sodium (137-145) mmol/L Glucose (75-100) mg/dL POC Glucose 317 H 175 H 223 H (70-105) 05/31/19 Range/Units 08:46 Sodium 135 L (137-145) mmol/L Glucose 263 H (75-100) mg/dL POC Glucose (70-105) All other labs normal. Assessment and Plan Assessment and plan: Impression: PPHx schizophrenia and dementia. Today the patient is calm and cooperative during the assessment. He endorses chronic AH's. At the time of the assessment patient is in no imminent danger to self/others. Patient denies SI/HI's and delusions. Also, patient is compliant with medication. Intermittent confusion noted. Recommendation/Plan: 1. Continue psychiatric medications: Cymbalta 60mg po Qdaily, Risperdal 4mg po BID, and Trazodone 100mg po QHS 2. Discussed possible suicidality/medication induced jake with the patient reference Cymbalta and Trazodone. Discussed metabolic side effects of Risperdal. patient verbalizes some understanding. Disposition: The patient is to follow-up with his outpatient psychiatrist to continue psychiatric care/medications. Will staff with Dr. Denise Borja.
--- NOTE | 2019-05-31 12:07 | Discharge Summary ---
Providers - Providers Date of Admission: 05/30/19 02:19 Date of discharge: 05/31/19 Attending physician: ILIANA WILKES 05/30/19 06:07 psychiatry consult [Consult to Mental Health] [CONS] Routine Reason For Exam: hearimng voices Place consult to:: psych Notified:: PASTOR Phone number called:: [phone] Was contact made?: Yes If yes, spoke with:: PASTOR Time called:: 07:00 05/30/19 08:53 Consult to Wound/ET Nurse [CONS] Routine Reason For Exam: left foot ulcer 05/31/19 08:40 Physical Therapy Evaluation and Treat [CONS] Routine Comment: Reason For Exam: left side weakness [facility] Reason for admission: zoey, hyperglycemia Condition: Stable Hospital course: Pt is a 57 year old male with PMHx of schizophrenia, dementia, DM type 2, HTN who was brought to the ER with c/o hearing voices and hyperglycemia. Pt resides in a personal group home, he reports hearing voices, pt blood glucose was done at the personal group home and was found to be elevated. The patient was treated with insulin with resolution of the hyperglycemia. Patient was started back on his home medications of Glucotrol and Actos with stabilization of blood sugar. The patient was also noted to have acute kidney injury (creatinine 2.3) secondary to vasomotor nephropathy from dehydration/volume depletion. The patient received IV fluid hydration with return of creatinine back to baseline of 1.2. Psychiatry evaluated the patient and recommended Disposition: DC-30 STILL A PATIENT Time spent for discharge: 32 - Discharge Diagnoses (1) Hyperglycemia Status: Acute (2) ZOEY (acute kidney injury) Status: Acute (3) ARF (acute renal failure) Status: Acute Qualifiers: Acute renal failure type: with acute tubular necrosis Qualified Code(s): N17.0 - Acute kidney failure with tubular necrosis Core Measure Documentation - Palliative Care Palliative Care/ Comfort Measures: Not Applicable - Core Measures Any of the following diagnoses?: none Exam - Constitutional Vitals: Temp Pulse Resp BP Pulse Ox 99.0 F 73 16 122/65 99 05/31/19 05:14 05/31/19 05:14 05/31/19 05:14 05/31/19 05:14 05/31/19 05:14 General appearance: Present: no acute distress, well-nourished - EENT Eyes: Present: PERRL ENT: hearing intact, clear oral mucosa - Neck Neck: Present: supple, normal ROM - Respiratory Respiratory effort: normal Respiratory: bilateral: CTA - Cardiovascular Heart Sounds: Present: S1 & S2. Absent: rub, click - Extremities Extremities: pulses symmetrical, No edema Peripheral Pulses: within normal limits - Abdominal General gastrointestinal: Present: soft, non-tender, non-distended, normal bowel sounds Male genitourinary: Present: normal - Integumentary Integumentary: Present: clear, warm, dry - Musculoskeletal Musculoskeletal: gait normal, strength equal bilaterally - Psychiatric Psychiatric: appropriate mood/affect, intact judgment & insight - Neurologic Neurologic: CNII-XII intact, moves all extremities Plan Activity: no restrictions Weight Bearing Status: Full Weight Bearing Diet: diabetic [facility] - 7 Days Prescriptions: Pioglitazone [Actos] 15 mg PO DAILY #30 tablet Aspirin EC 325 mg PO DAILY #30 tablet DULoxetine [Cymbalta] 60 mg PO QDAY #30 capsule traZODone [Desyrel] 100 mg PO QHS #30 tablet Ferrous Sulfate [Feosol 325 MG tab] 325 mg PO BID #60 tablet glipiZIDE [Glucotrol] 10 mg PO BID #60 tablet Haloperidol [Haldol] 2.5 mg PO BID #60 tablet AtorvaSTATin [Lipitor] 20 mg PO QDAY #30 tablet amLODIPine [Norvasc] 10 mg PO DAILY #30 tablet risperiDONE [RisperiDONE] 4 mg PO BID #60 tablet
[2019-05-31 17:50] VITALS: BP 141/72
== END 2019-05-31 19:21 | disposition home or self-care (01) | DRG 637 ==
LOC: ED 17:34 → 3A 05-30 02:19
PROVIDERS: ADMIT Internal Medicine; ATTEND Hospitalist
DX: E11.65 Type 2 diabetes mellitus with hyperglycemia (principal); N17.0 Acute kidney failure with tubular necrosis; E87.1 Hypo-osmolality and hyponatremia; N18.9 Chronic kidney disease, unspecified; F20.9 Schizophrenia, unspecified; E11.22 Type 2 diabetes mellitus with diabetic chronic kidney disease; F03.90 Unspecified dementia, unspecified severity, without behavioral disturbance, psychotic disturbance, mood disturbance, and anxiety; G89.29 Other chronic pain; M79.672 Pain in left foot; M25.572 Pain in left ankle and joints of left foot; F17.210 Nicotine dependence, cigarettes, uncomplicated; I12.9 Hypertensive chronic kidney disease with stage 1 through stage 4 chronic kidney disease, or unspecified chronic kidney disease; E86.0 Dehydration; E86.9 Volume depletion, unspecified; Z79.899 Other long term (current) drug therapy; Z79.82 Long term (current) use of aspirin; Z88.8 Allergy status to other drugs, medicaments and biological substances; Z79.84 Long term (current) use of oral hypoglycemic drugs
CPT/HCPCS: 36415; 70450; 80048; 80053; 80320; 81001; 82550; 82805; 82962; 83735; 85027; 85610; 87116; 93005; 93010; 99406; G0378; A9270-GY; G0480; J1650; J1815; J2060; J7030; J7042

== ENCOUNTER 2020-09-10 16:33 | Emergency (ER) | payer MEDICARE ==
[2020-09-10 20:24] LABS: Basophils % (Auto) 0.6 % (0.0-1.8); Eosinophils # (Auto) 0.1 K/mm3 (0.0-0.4); Eosinophils % (Auto) 1.5 % (0.0-4.3); Hematocrit 34.9 % (35.5-45.6); Hemoglobin 11.4 gm/dl (11.8-15.2); Lymphocytes # (Auto) 1.2 K/mm3 (1.2-5.4); Lymphocytes % (Auto) 30.7 % (13.4-35.0); Mean Corpuscular HGB Conc 33 % (32-34); Mean Corpuscular Volume 97 fl (84-94); Monocytes # (Auto) 0.4 K/mm3 (0.0-0.8); Monocytes % (Auto) 9.4 % (0.0-7.3); Platelet Count 169 K/mm3 (140-440); Red Blood Count 3.62 M/mm3 (3.65-5.03); Red Cell Distribution Width 12.2 % (13.2-15.2)
[2020-09-10 20:25] LABS: Alanine Aminotransferase 16 units/L (7-56); Albumin 3.9 g/dL (3.9-5); BUN/Creatinine Ratio 11; Blood Urea Nitrogen 14 mg/dL (9-20); Calcium 9.5 mg/dL (8.4-10.2); Hemolysis Index 12
[2020-09-10 22:57] VITALS: BP 154/90
== END 2020-09-11 03:25 | disposition home or self-care (01) ==
LOC: ED 16:33
DX: R73.9 Hyperglycemia, unspecified (principal); Z53.21 Procedure and treatment not carried out due to patient leaving prior to being seen by health care provider
CPT/HCPCS: 36415; 80053; 82805; 82962; 85025